=== PATIENT | female | born 1985 | race African-American/Black ===

== ENCOUNTER 2020-03-12 21:52 | Emergency (ER) | payer MEDICARE, MEDICAID, SELFPAY ==
[2020-03-12 22:09] VITALS: BP 131/72; PULSE 78; RESP 14; TEMP 36.8; O2SAT 100
--- NOTE | 2020-03-12 22:43 | ED.SKABFB ---
HPI - Skin/Abscess/Foreign Bdy General Chief complaint: Skin/Abscess/Foreign Body Stated complaint: stung by bee/ swelling in foot Source: patient Mode of arrival: ambulatory Limitations: no limitations History of Present Illness HPI narrative: Left lateral foot stung by several bees yesterday. Today the left foot is swollen, discolored and very painful. She has kept the foot up all day with no improvement. She states this occurs about once a year. She has been treated successfully with prednisone in the past. She denies a rash elsewhere, lip /throat swelling , shortness of breath, nausea, vomiting or lightheadedness Ever since she gave childbirth her feet swell up daily, go down at night. The left foot is much more swollen this evening than the right foot. Related Data Allergies Allergy/AdvReac Type Severity Reaction Status Date / Time No Known Allergies Allergy Verified 03/12/20 22:08 Review of Systems Constitutional: Constitutional: Denies fever(s) Comments: no chills Respiratory: Respiratory: Reports no additional respiratory complaints Gastrointestinal: Gastrointestinal: Reports no additional gastrointestinal complaints Integumentary/Breasts: Skin/Breast: Reports system reviewed and no additional complaints, except as docu FOR[facility]LY [facility] Past Medical History Medical History (Updated 03/13/20 @ 03:49 by Maximino Leslie MD) Cerebral palsy Family History Family History Mother Family history of type 2 diabetes mellitus Social History Social History Smoking status: Current some day smoker Exam Const: General: cooperative and uncomfortable Extrem: Ankle/foot/toe images: 1. dark red & brown, swollen and tender. No foreign body. 2. small, dried ulcer on the tip of her left 5th toe. Other: 1-2 + edema right foot. 2-3+ edema of left foot, especially lateral aspect. There is no streaking of left foot rash towards ankle. Psych: Appearance: grossly normal Course Course Emergency Course: Diagnosis of Large Local Reaction from a bee sting and its treatment explained to the patient. Vital Signs Vital signs: Vital Signs Temperature 36.8 C 03/12/20 22:09 Pulse Rate 78 03/12/20 22:09 Respiratory Rate 14 03/12/20 22:09 Blood Pressure 131/72 03/12/20 22:09 Pulse Oximetry 100 03/12/20 22:09 Temperature 36.8 C 03/12/20 22:09 Pulse Rate 78 03/12/20 22:09 Respiratory Rate 15 03/12/20 23:10 Blood Pressure 131/72 03/12/20 22:09 Pulse Oximetry 100 03/12/20 22:09 MDM - Skin/Abscess/Foreign Bdy MDM Narrative Medical decision making narrative: Patient has a Large Local Reaction from a bee sting which will improve with steroids. Pt. given information about LLR which peaks at 48 hours and may take 5 days before resolution. Discharge Plan Discharge Clinical Impression: Bee sting reaction Qualifiers: Encounter type: initial encounter Injury intent: accidental or unintentional Qualified Code(s): T63.441A - Toxic effect of venom of bees, accidental (unintentional), initial encounter Patient Disposition: Home, Self-Care Condition: Stable Instructions: Insect Bite or Sting (ED) Additional Instructions: Zyrtec 10 mg daily for itching. Return if worsening of symptoms. Follow up with Dr. Briones if not improved in 3 days, not resolved in one week. Prescriptions: New prednisone 10 mg tablet 10 mg PO DAILY Qty: 10 RF: 0 Follow-up/Referrals: Van Briones DO [Primary Care Provider] - Time of Disposition: 23:03 Discharge Date/Time: 03/12/20 23:11
[2020-03-12] MEDS: predniSONE 20 MG TABLET 60 MG PO (22:50)
[2020-03-12 23:10] VITALS: RESP 15
== END 2020-03-12 23:11 | disposition home or self-care (01) ==
PROVIDERS: Emergency Provider Family Medicine; PCP Family Medicine
DX: T63.441A Toxic effect of venom of bees, accidental (unintentional), initial encounter (principal)
CPT/HCPCS: 99283; J7512

== ENCOUNTER 2021-08-09 11:27 | Emergency (ER) | payer OTHER, SELFPAY ==
[2021-08-09 11:40] VITALS: BP 129/52; PULSE 74; RESP 20; TEMP 36.2; O2SAT 100
--- NOTE | 2021-08-09 11:48 | ED.DENTAL ---
HPI - Dental/Oral General Chief complaint: Dental/Oral Stated complaint: toothache Source: patient Mode of arrival: ambulatory Limitations: no limitations History of Present Illness HPI Narrative: this is a 35-year-old female with a chronic dental carries left upper and lower molars has an appointment with dentist in August, but having increased pain with jaw inflammation currently no fever chills no nausea vomiting no shortness of breath. Complaint: tooth pain Onset (ago): week(s) Duration: constant Severity: moderate Severity scale (1-10): 6 Relieving factors: NSAIDs Exacerbating factors: chewing, cold and drinking fluids Related Data Allergies Allergy/AdvReac Type Severity Reaction Status Date / Time No Known Allergies Allergy Verified 08/09/21 11:45 Review of Systems Review of Systems: All systems reviewed & are unremarkable except as noted in HPI and below PMFSH Past Medical History Medical History Cerebral palsy Family History Family History Mother Family history of type 2 diabetes mellitus Social History Social History Smoking status: Current some day smoker Exam Const: General: no acute distress and alert Orientation/consciousness: patient oriented x3 HENMT: Head: normal to inspection Eyes: Conjunctivae: conjunctivae normal Pupils: Equal, round and reactive pupils present Neck: Neck: no lymphadenopathy and no meningeal signs Chest: Chest palpation & inspection: normal inspection of the chest Resp: Effort & Inspection: normal respiratory effort Auscultation: clear to auscultation bilaterally Cardio: Rate: regular rate Rhythm: regular rhythm GI: Auscultation: normal bowel sounds : General: Yes no CVA tenderness Urinary Catheter: Urinary Catheter: patent and draining Back/Spine/Pelvis: Back: no CVA tenderness Skin: General skin exam: normal color Rashes: no rashes Extrem: General: normal to inspection Course Course Emergency Course: Patient received IM ceftriaxone and IM Toradol with some improvement of her pain level. Vital Signs Vital signs: Vital Signs Temperature 36.2 C L 08/09/21 11:40 Pulse Rate 74 08/09/21 11:40 Respiratory Rate 20 08/09/21 11:40 Blood Pressure 129/52 L 08/09/21 11:40 Pulse Oximetry 100 08/09/21 11:40 Temperature 36.2 C L 08/09/21 11:40 Pulse Rate 74 08/09/21 11:40 Respiratory Rate 20 08/09/21 11:40 Blood Pressure 129/52 L 08/09/21 11:40 Pulse Oximetry 100 08/09/21 11:40 Critical Care Time Critical Care Time Critical Care Time: No Discharge Plan Discharge Clinical Impression: Dental caries, Dental abscess Patient Disposition: Home, Self-Care Condition: Stable Instructions: Antibiotic Form, Dental Abscess (ED), Toothache (ED) Additional Instructions: Follow-up with dentist as scheduled, take medicine as prescribed. Prescriptions: New tramadol [Ultram] 50 mg tablet 50 mg PO Q6H PRN (Reason: pain) Qty: 14 RF: 0 amoxicillin 500 mg capsule 500 mg PO TID Qty: 30 RF: 0 Follow-up/Referrals: Van Briones DO [Primary Care Provider] - Stand Alone Forms: Work/School Release IP Time of Disposition: 11:54
[2021-08-09] MEDS: cefTRIAXone 1 GM VIAL IM (11:53)
[2021-08-09] MEDS: KETOROLAC (*BKC) 60 MG/2 ML VIAL IM (11:53)
[2021-08-09] MEDS: LIDOCAINE HCL 1% LOCAL INJ 20 ML VIAL (11:54)
[2021-08-09 12:15] VITALS: BP 118/54; PULSE 70; RESP 20; TEMP 36.7; O2SAT 100
== END 2021-08-09 12:15 | disposition home or self-care (01) ==
PROVIDERS: Emergency Provider Emergency Medicine; PCP Family Medicine
DX: K02.9 Dental caries, unspecified (principal); K04.7 Periapical abscess without sinus
CPT/HCPCS: 96372; 99283; 99284; J0696; J1885

== ENCOUNTER 2021-08-13 20:26 | Emergency (ER) | payer OTHER, SELFPAY ==
[2021-08-13 21:40] VITALS: BP 127/69; PULSE 85; RESP 20; TEMP 36.6; O2SAT 100
--- NOTE | 2021-08-13 23:16 | ED.EXTPRO ---
HPI - Extremity Problem General Source: patient and RN notes reviewed Mode of arrival: ambulatory Limitations: no limitations History of Present Illness Complaint: extremity pain Onset (ago): day(s) (1) Pain Consistency: constant Location: left and lower extremity Severity scale (1-10): 3 Quality: aching and dull Radiation: none Relieving factors: nothing Exacerbating factors: nothing Associated symptoms: denies other symptoms Related Data Allergies Allergy/AdvReac Type Severity Reaction Status Date / Time No Known Allergies Allergy Verified 08/09/21 11:45 Review of Systems Review of Systems: All systems reviewed & are unremarkable except as noted in HPI and below PMFSH Past Medical History Medical History Cerebral palsy Insect bite of foot Family History Family History Mother Family history of type 2 diabetes mellitus Social History Social History Smoking status: Current some day smoker Exam Const: General: no acute distress and alert Orientation/consciousness: patient oriented x3 Limitations: no limitations HENMT: Head: normal to inspection Ears: external ears normal and TM's normal bilaterally General nose exam: Normal external nose present and Normal nares present Eyes: Conjunctivae: conjunctivae normal Pupils: Equal, round and reactive pupils present Neck: Neck: normal visual inspection and no lymphadenopathy Chest: Chest palpation & inspection: normal inspection of the chest Resp: Effort & Inspection: normal respiratory effort Cardio: Rate: regular rate Rhythm: regular rhythm GI: GI Palp: Yes Soft to palpation and No Tenderness to palpation present (GI) Percussion: Yes normal to percussion Auscultation: normal bowel sounds : General: Yes bladder normal to palpation and Yes no CVA tenderness Back/Spine/Pelvis: Back: no CVA tenderness Skin: General skin exam: normal color Rashes: no rashes Neuro: General: patient oriented x3, moves all extremities, no meningeal signs, no focal motor deficits and CN's II-XI intact bilaterally Extrem: Other: left foot redness and swelling. no acute swelling or deformity. Psych: Mental Status: mental status grossly normal Affect: normal affect Thought content: Yes Normal thought content present Course Course Emergency Course: Pt was stable in the ED with less left foot pain. Reevaluation(s) Date: 08/13/21 Time: 21:25 Vital Signs Vital signs: Vital Signs Temperature 36.6 C 08/13/21 21:40 Pulse Rate 85 08/13/21 21:40 Respiratory Rate 20 08/13/21 21:40 Blood Pressure 127/69 08/13/21 21:40 Pulse Oximetry 100 08/13/21 21:40 Temperature 36.6 C 08/13/21 23:36 Pulse Rate 85 08/13/21 23:36 Respiratory Rate 20 08/13/21 23:36 Blood Pressure 126/75 08/13/21 23:36 Pulse Oximetry 100 08/13/21 23:36 MDM - Extremity (Nontraumatic) Differential Diagnosis Differential diagnosis: Likely gout and cellulitis Medical Records Attestation: I reviewed the patient's medical records. Critical Care Time Critical Care Time Critical Care Time: No Total Critical Care Time: 0 Discharge Plan Discharge Clinical Impression: Cellulitis of foot, left, Bee sting reaction Patient Disposition: Home, Self-Care Condition: Stable Instructions: Antibiotic Form Additional Instructions: home. May RTC prn. PMD in 1-2 days. Rx below. Keep the left foot clean and dry. Prescriptions: New methylprednisolone [Methylpred DP] 4 mg tablets,dose pack See Rx Instructions .ROUTE .COMPLEX Qty: 21 RF: 0 diphenhydramine HCl [Benadryl] 25 mg capsule 50 mg PO TID PRN (Reason: allergic reaction) Qty: 20 RF: 0 ibuprofen 800 mg tablet 800 mg PO TID PRN (Reason: pain) Qty: 20 RF: 0 omeprazole magnesium [Prilosec OTC] 20 mg tablet,delayed rele
[2021-08-13] MEDS: cefTRIAXone 1 GM VIAL IM (23:34)
[2021-08-13] MEDS: IBUPROFEN 400 MG TABLET 800 MG PO (23:34)
[2021-08-13] MEDS: methylPREDNISolone SOD SUCC 125 MG VIAL IM (23:34)
[2021-08-13 23:36] VITALS: BP 126/75; PULSE 85; RESP 20; TEMP 36.6; O2SAT 100
== END 2021-08-13 23:44 | disposition home or self-care (01) ==
PROVIDERS: Emergency Provider Emergency Medicine; PCP Family Medicine
DX: L03.116 Cellulitis of left lower limb (principal); T63.441A Toxic effect of venom of bees, accidental (unintentional), initial encounter
CPT/HCPCS: 96372; 99283; 99284; A9270; J0696; J2930

== ENCOUNTER 2022-10-12 20:20 | Emergency (ER) | payer OTHER, SELFPAY ==
--- NOTE | ~2022-10-12 | XR_ITS ---
EXAMINATION: XR chest 1V portable Exam Date/Time: 10/12/2022 20:48 [employer]UCKING CONTRACTOR HISTORY: dyspnea,cough,midsternal cp, body aches x few days hx smoker Comparison: None available. RESULT: Lines, tubes, and devices: None. Lungs and pleura: Clear. Cardiomediastinal silhouette: Unremarkable. Other: No acute osseous or upper abdominal finding. IMPRESSION: No acute cardiopulmonary process. Reviewed, dictated and finalized at location K. KING CONTRACTOR
[2022-10-12 20:25] VITALS: BP 125/75; PULSE 90; RESP 20; TEMP 37; O2SAT 100
--- NOTE | 2022-10-12 20:42 | ED.GENADULT ---
HPI - General Adult General Chief complaint: Upper Respiratory Infection Stated complaint: trouble breathing Time Seen by Provider: 10/12/22 20:32 History of Present Illness HPI narrative: the patient is a 37-year-old woman with a history of asthma and cerebral palsy. She has not used her inhalers in 7 years. She is an active smoker. For the last several days, the patient has had a cough productive of white sputum, rhinorrhea, nasal congestion, sore throat, changes in her voice with voice becoming more worse, shortness of breath, and wheezing. She feels weak and tired and feels miserable. No fevers or chills or diaphoresis. No chest pain or abdominal pain. No nausea vomiting. No other complaints. Related Data Allergies Allergy/AdvReac Type Severity Reaction Status Date / Time No Known Allergies Allergy Verified 08/09/21 11:45 Review of Systems Review of Systems: All systems reviewed & are unremarkable except as noted in HPI and below Constitutional: Constitutional: Reports no additional constitutional complaints, Denies anorexia, Reports body ache(s), Denies chills, Denies excessive sweating, Reports fatigue, Denies fever(s), Denies frequent falls, Denies headache(s), Reports malaise and Denies poor appetite Eyes: Eyes: Reports no additional eye complaints, Denies blurry vision, Denies change in vision, Denies irritation, Denies itchy eyes and Denies photophobia ENT: Reports system reviewed and no additional complaints, except as documented, Reports Normal hearing present, Reports change in voice, Reports dysphagia, Denies vertigo, Denies dizziness, Denies ear discharge, Denies headache(s), Denies hearing loss, Denies hoarseness, Reports nasal congestion, Denies neck pain, Denies sinus pressure, Reports sore throat and Denies throat swelling Cardiovascular: Cardiovascular: Reports no additional cardiovascular complaints, Denies chest pain, Denies syncope, Denies rapid heart rate, Denies irregular heart rhythm, Denies leg edema, Denies dyspnea and Denies slow heart rate Respiratory: Respiratory: Reports no additional respiratory complaints, Reports cough, Reports dyspnea, Denies stridor and Reports wheezing Gastrointestinal: Gastrointestinal: Reports no additional gastrointestinal complaints, Denies abdominal pain, Denies melena, Denies hematochezia, Denies dysphagia, Denies diarrhea, Denies nausea and Denies vomiting Genitourinary: Genitourinary: Denies hematuria, Denies urinary frequency, Denies dysuria, Denies flank pain and Denies urinary urgency Musculoskeletal: Musculoskeletal: Reports no additional musculoskeletal complaints, Denies abnormal gait, Denies back pain, Denies myalgias, Denies arthralgias, Denies joint swelling, Denies limited range of motion, Denies muscle cramps, Denies muscle weakness, Denies neck pain and Denies numbness Integumentary/Breasts: Skin/Breast: Reports system reviewed and no additional complaints, except as docu, Denies breast pain, Denies change in pigmentation, Denies pruritus, Denies erythema and Denies wounds Neurologic: Reports system reviewed and no additional complaints, except as documented, Reports Normal hearing present, Denies Abnormal speech present, Denies abnormal gait, Denies confusion, Denies vertigo, Denies dizziness, Denies syncope, Denies frequent falls, Denies headache(s), Denies focal weakness, Denies numbness and Denies paresthesias Psychiatric: Psychiatric: Reports no additional psychiatric complaints and Denies confusion Endocrine: Endocrine: Reports no additional endocrine complaints, Denies cold intolerance, Denies excessive sweating, Denies fatigue and Denies heat intolerance Hematologic/Lymphatic: Hematologic/Lymphatic: Reports no additional hematologic/lymphatic complaints, Denies easy bleeding and Denies easy bruising Allergic/Immunologic: Allergic/Immunologic: Reports no additional allergic/immunologic complaints, Denies urticaria, Denies itchy eyes, Denies throat swelling
[2022-10-12] MEDS: IPRATROPIUM 0.5 MG/ALBUTEROL SULFATE 2.5 MG AMPUL.NEB 3 ML INHALATION (20:50)
[2022-10-12 20:54] VITALS: PULSE 81; RESP 16
[2022-10-12] MEDS: guaiFENesin/DEXTROMETHORPHAN 5 ML UDC 10 ML PO (21:24)
[2022-10-12 21:25] LABS: Strep Group A RT-PCR NOT DETECTED (Negative)
[2022-10-12] MEDS: BENZONATATE 100 MG CAPSULE PO (21:25)
[2022-10-12] MEDS: AZITHROMYCIN 250 MG TABLET 500 MG PO (21:25)
[2022-10-12 21:31] LABS: Influenza A QL RT-PCR Negative (Negative); Influenza B QL RT-PCR Negative (Negative); RSV RNA, RT-PCR Negative (Negative); SARS-CoV-2 RNA PCR Negative (Negative)
[2022-10-12] MEDS: KETOROLAC 30 MG/ML VIAL (*BKC) IV PUSH (21:38)
[2022-10-12] MEDS: methylPREDNISolone SOD SUCC 125 MG VIAL IV PUSH (21:38)
[2022-10-12] MEDS: MAGNESIUM SULF 2 GM/WATER 50ML 2 GM/50 ML BAG IVPB (21:53)
[2022-10-12 22:17] LABS: Add Urine Microscopic? NO; Appearance Urine Clear (Clear); Bilirubin Urine Negative (Negative); Blood Urine Negative (Negative); Color Urine Light Yellow (Yellow); Glucose Urine UA Negative (Negative); Ketones Urine Negative (Negative); Leukocyte Esterase Ur Negative LEU/UL (Negative); Nitrate Urine Negative (Negative); Protein Urine Negative (Negative)
[2022-10-12 22:20] LABS: Pregnancy On Board Control Positive; Urine Pregnancy Test Negative
[2022-10-12 22:23] VITALS: BP 118/74; PULSE 88; RESP 20; TEMP 36.6; O2SAT 99
== END 2022-10-12 22:29 | disposition home or self-care (01) ==
PROVIDERS: Emergency Provider Emergency Medicine
DX: J45.909 Unspecified asthma, uncomplicated (principal); F17.200 Nicotine dependence, unspecified, uncomplicated; Z20.822 Contact with and (suspected) exposure to COVID-19
CPT/HCPCS: 71045; 81003; 81025; 87637; 87651; 94640; 96365; 96367; 96375; 99284; A9270; J0696; J1885; J2930; J3475

== ENCOUNTER 2023-09-02 11:53 | Outpatient (RCR) | payer MEDICARE, MEDICAID, SELFPAY ==
[2023-09-01 15:32] LABS: Basophils Absolute Auto 0.09 K/mm3 (0.00-0.10); Basophils Percent Auto 1.8 % (0.0-1.0); Eosinophils Absolute Auto 0.14 K/mm3 (0.02-0.50); Eosinophils Percent Auto 2.8 % (1.0-6.0); Hematocrit 25.1 % (35.0-49.0); Immature Granulocyte Absolute 0.02 K/mm3 (0.00-0.00); Immature Granulocyte Percent A 0.4 % (0.0-0.0); Immature Platelet Fraction Pct 7.6 % (1.0-7.0); Lymphocytes Absolute Auto 1.27 K/mm3 (1.10-4.50); Lymphocytes Percent Auto 25.3 % (18.0-42.0); Mean Corpuscular HGB Conc 23.1 g/dL (32.0-36.0); Mean Corpuscular Hemoglobin 14.1 pg (27.0-31.0); Mean Corpuscular Volume 61.2 fL (78.0-102.0); Monocytes Absolute Auto 0.64 K/mm3 (0.10-0.90); Monocytes Percent Auto 12.8 % (2.0-11.0); Neutrophils Absolute Auto 2.9 K/mm3 (1.7-7.2); Neutrophils Percent Auto 56.9 % (50.0-70.0); Nucleated Red Blood Cells Absolute Auto 0.03 K/mm3 (0.00-0.00); Nucleated Red Blood Cells Perc 0.6 % (0-0.0); Platelet Count Result 220 K/mm3 (150-420); Red Cell Distribution Width 19.9 % (11.6-14.4)
[2023-09-01 15:46] LABS: Hemoglobin 5.8 g/dL (12.0-15.0)
[2023-09-01 16:10] LABS: Alanine Aminotransferase 24 U/L (14-59); Albumin Level 4.1 g/dL (3.4-5.0); Alkaline Phosphatase 90 U/L (46-116); Anion Gap 6 mmol/L (8-16); Aspartate Amino Transferase 11 U/L (15-37); Bilirubin,Total 0.6 mg/dL (0.00-1.00); Blood Urea Nitrogen 8 mg/dL (7-18); Calcium 8.7 mg/dL (8.5-10.1); Carbon Dioxide 28 mmol/L (21-32); Chloride 102 mmol/L (98-108); Estimated Glomerular Filt Rate > 60; Free T4 Free Thyroxine 0.79 ng/dL (0.76-1.46); Glucose 90 mg/dL (70-99); Iron 9 ug/dL (50-170); Magnesium 2.1 mg/dL (1.8-2.4); Osmolality Calculated 280 mOsm/kg (285-295); Potassium 3.9 mmol/L (3.5-5.1); Sodium 136 mmol/L (136-145); Thyroid Stimulating Hormone 1.67 uIU/mL (0.36-3.74); Total Protein 7.8 g/dL (6.4-8.2)
[2023-09-01 17:17] VITALS: BP 132/58; PULSE 86; RESP 16; TEMP 36.5; O2SAT 99
[2023-09-01 17:33] VITALS: BP 122/54; PULSE 78; RESP 18; TEMP 36.6; O2SAT 99
[2023-09-01 17:46] VITALS: BMI 25.2
--- NOTE | 2023-09-01 18:00 | PC.NURSE ---
1718 blood started @100ml/hr. 1730 blood titrated up 125ml/hr 1745 blood titrated 150ml/hr 1800 titrated up 175ml/hr
[2023-09-01 18:33] VITALS: BP 118/74; PULSE 74; RESP 16; TEMP 36.6; O2SAT 97
[2023-09-01 19:33] VITALS: BP 112/52; PULSE 91; RESP 17; TEMP 36.4; O2SAT 100
[2023-09-01] MEDS: SODIUM CHLORIDE 0.9% IV 250 ML 100 ML IV CONT (19:36)
[2023-09-01 20:52] LABS: Hematocrit 29.7 % (35.0-49.0); Hemoglobin 7.1 g/dL (12.0-15.0)
[2023-09-02] MEDS: SODIUM CHLORIDE 0.9% IV 250 ML 10 ML IVPB (12:00)
[2023-09-02 12:11] VITALS: BP 118/60; PULSE 92; RESP 16; TEMP 36.6; O2SAT 98
[2023-09-02 12:25] VITALS: BP 118/60; PULSE 88; RESP 16; TEMP 36.6; O2SAT 97
[2023-09-02 13:25] VITALS: BP 120/69; PULSE 88; RESP 14; TEMP 36.6; O2SAT 97
[2023-09-02 14:25] VITALS: BP 110/59; PULSE 88; RESP 14; TEMP 36.7; O2SAT 99
--- NOTE | 2023-09-02 14:46 | PC.NURSE ---
1210 Patient here for 1 Unit of PRBC's r/t hgb 7.1. Patient had 1 unit last evening here for Hgb 5. Consent signed. Explained blood transfusion protocol. All questions answered. 1 Unit of PRBC's started at 100 ml/hr. 1230 No transfusion reaction noted or reported. Up rate to 125 ml/hr. Eating lunch. 1300 Tolerated blood well. Up rate to 150 ml/hr from here on out. 1430 1 unit of PRBC's completed. Normal saline infusion. No concerns voiced.
--- NOTE | 2023-09-02 14:58 | PC.NURSE ---
1455 post h/h drawn from lab.
[2023-09-02 15:02] VITALS: BP 109/67; PULSE 88; RESP 14; TEMP 36.7; O2SAT 98
[2023-09-02 15:12] LABS: Hematocrit 31.1 % (35.0-49.0)
--- NOTE | 2023-09-02 15:17 | PC.NURSE ---
1510 IV dc'd. cath intact. site good. Patient used restroom. Vital signs stable. Safe exit of hospital per self/amb.
[2023-09-03 12:52] LABS: Vitamin D 25 Hydroxy 12 ng/mL (30-100)
== END 2023-11-30 23:59 | disposition home or self-care (01) ==
LOC: CHSTREATRM 11:53
PROVIDERS: PCP Nurse Practitioner Family; Visit Provider Nurse Practitioner Family
DX: D64.9 Anemia, unspecified (principal); R53.83 Other fatigue; Z79.899 Other long term (current) drug therapy
CPT/HCPCS: 36415; 36430; 80053; 82306; 83540; 83735; 84439; 84443; 85014; 85018; 85025; 85055; 86850; 86900; 86901; 86920; J7050; P9016

== ENCOUNTER 2023-09-07 18:35 | Emergency (ER) | payer MEDICARE, OTHER, SELFPAY ==
[2023-09-07 18:35] VITALS: BP 148/72; PULSE 72; RESP 20; TEMP 36.7; O2SAT 100
--- NOTE | 2023-09-07 19:20 | ED.GENADULT ---
HPI - General Adult General Chief complaint: Weakness Stated complaint: weakness Time Seen by Provider: 09/07/23 19:20 History of Present Illness HPI narrative: this is a 38-year-old female presenting ED with chief complaint of fatigue. Patient says that for the last year she has felt physically exhausted. She says she feels like her body is falling apart. She says that it has gotten worse over the last week. She also notes multiple stressors at home but when I asked her about what they were she would not tell me. She then became tearful. When I asked her if she had any history of depression she became upset and said that that is not her problem. Denies SI HI. Patient is post be getting iron infusions for microcytic anemia and has seen her PCP for this the last week. Patient was diagnosed with bronchitis last week. She denies chest pain difficulty breathing, fever chills nausea vomiting diarrhea or urinary symptoms. She is starting her menses now. Related Data Allergies Allergy/AdvReac Type Severity Reaction Status Date / Time No Known Allergies Allergy Verified 09/07/23 18:41 [facility] Past Medical History Medical History Cerebral palsy Insect bite of foot Family History Family History Mother Family history of type 2 diabetes mellitus Social History Social History Smoking status: Current some day smoker Exam Narrative: APPEARANCE: Patient is tearful and confrontational during the interview. Head: atraumatic. EYES: EOMI, NOSE: Atraumatic NECK: Trachea midline RESPIRATORY: No increased rate of breathing CTAB CARDIOVASCULAR: RRR, no peripheral edema ABDOMINAL: Non-distended soft nontender no guarding or rebound MUSCULOSKELETAl: No obvious deformities NEURO: Alert. Moving 4/4 extremities , ambulating without difficulty. No localizing weakness. SKIN:: Warm, dry. Normal color PSYCHIATRIC: Normal affect Course Vital Signs Vital signs: Vital Signs Temperature 98.1 F 09/07/23 18:35 Pulse Rate 72 09/07/23 18:35 Respiratory Rate 20 09/07/23 18:35 Blood Pressure 148/72 H 09/07/23 18:35 Pulse Oximetry 100 09/07/23 18:35 Oxygen Delivery Room Air 09/07/23 18:35 Temperature 98.1 F 09/07/23 18:35 Pulse Rate 72 09/07/23 18:35 Respiratory Rate 20 09/07/23 18:35 Blood Pressure 148/72 H 09/07/23 18:35 Pulse Oximetry 100 09/07/23 18:35 Oxygen Delivery Room Air 09/07/23 18:35 Medical Decision Making MDM Narrative Medical decision making narrative: -Course: 38-year-old female presenting for 1 year of fatigue. Lab work was ordered which showed hemoglobin of 7.9 which is consistent with her outpatient values. Metabolic panel/viral swabs negative. At this time vital signs are stable. She has close outpatient follow-up and should be receiving her iron transfusions this week. Patient will be discharged to follow-up with her primary care physician. During my initial interview and when went to discuss the results with the patient she was confrontational. She was tearful. She says that I did not listen to her and that I did not care. When I asked what else I could do for her she told me she already knew everything that was going on and continued to say I wasn't listening to her. Unfortunately I am not sure what else I can provide her. She was very unhappy with her care. -DDX includes but is not limited to: Anemia, depression, stress reaction, viral syndrome, dehydration -Co-morbidities complicating care: cerebral palsy, anemia -Social determinants of health: disabled due to cerebral palsy, lives with 3 children -External Chart Review: review of primary care notes from last week where the patient was seen for fatigue as well as daily anxiety -Independent interpretation of studies: hemoglobin 7.9, MCV 67.9.
[2023-09-07 19:53] LABS: Anion Gap 3 mmol/L (8-16); Blood Urea Nitrogen 9 mg/dL (7-18); Calcium 8.3 mg/dL (8.5-10.1); Carbon Dioxide 31 mmol/L (21-32); Chloride 103 mmol/L (98-108); Estimated CRCL calculation 121 ml/min; Estimated Glomerular Filt Rate > 60; Glucose 89 mg/dL (70-99); Osmolality Calculated 281 mOsm/kg (285-295); Potassium 3.7 mmol/L (3.5-5.1); Sodium 137 mmol/L (136-145)
[2023-09-07 19:54] LABS: Basophils Absolute Auto 0.08 K/mm3 (0.00-0.10); Basophils Percent Auto 1.2 % (0.0-1.0); Eosinophils Absolute Auto 0.14 K/mm3 (0.02-0.50); Eosinophils Percent Auto 2.1 % (1.0-6.0); Hematocrit 30.9 % (35.0-49.0); Hemoglobin 7.9 g/dL (12.0-15.0); Immature Granulocyte Absolute 0.03 K/mm3 (0.00-0.00); Immature Granulocyte Percent A 0.5 % (0.0-0.0); Immature Platelet Fraction Pct 8.2 % (1.0-7.0); Lymphocytes Absolute Auto 2.01 K/mm3 (1.10-4.50); Lymphocytes Percent Auto 30.3 % (18.0-42.0); Mean Corpuscular HGB Conc 25.6 g/dL (32.0-36.0); Mean Corpuscular Hemoglobin 17.4 pg (27.0-31.0); Mean Corpuscular Volume 67.9 fL (78.0-102.0); Monocytes Absolute Auto 0.69 K/mm3 (0.10-0.90); Monocytes Percent Auto 10.4 % (2.0-11.0); Neutrophils Absolute Auto 3.7 K/mm3 (1.7-7.2); Neutrophils Percent Auto 55.5 % (50.0-70.0); Platelet Count Result 166 K/mm3 (150-420); Red Blood Count 4.55 M/mm3 (4.20-5.40); Red Cell Distribution Width 27.8 % (11.6-14.4); White Blood Count 6.6 K/mm3 (4.8-10.8)
[2023-09-07 20:22] LABS: SARS-CoV-2 RNA PCR Negative (Negative)
[2023-09-07 20:32] LABS: Influenza A QL RT-PCR Negative (Negative); Influenza B QL RT-PCR Negative (Negative); RSV RNA, RT-PCR Negative (Negative)
== END 2023-09-07 21:03 | disposition home or self-care (01) ==
PROVIDERS: Emergency Provider Emergency Medicine; PCP Nurse Practitioner Family
DX: D64.9 Anemia, unspecified (principal); R53.1 Weakness; F17.200 Nicotine dependence, unspecified, uncomplicated; Z20.822 Contact with and (suspected) exposure to COVID-19
CPT/HCPCS: 36415; 80048; 85025; 85055; 87637; 99283

== ENCOUNTER 2023-09-09 10:19 | Outpatient (CLI) | payer MEDICARE, OTHER, SELFPAY ==
[2023-09-09] MEDS: IRON SUCROSE COMPLEX 300 MG in SODIUM CHLORIDE 0.9% IV 250 ML 125 MG IVPB (10:40)
[2023-09-09 10:46] VITALS: BP 136/70; PULSE 80; RESP 14; TEMP 36.6; O2SAT 99
[2023-09-09 10:47] VITALS: BMI 25.0
--- NOTE | 2023-09-09 12:41 | PC.NURSE ---
Patient here for #1 of 3 IV Venofer infusions. Education given. All concerns voiced- answered. IV Venofer administered. SEE MAR. Tolerated well. Gave a list of dates and times for #2 Venofer. She will call me tomorrow which one works best r/t has transportation issues. Safe exit of hospital per self/ambulatory.
== END 2023-09-09 10:20 | disposition home or self-care (01) ==
PROVIDERS: PCP Nurse Practitioner Family; Visit Provider Nurse Practitioner Family
DX: D50.9 Iron deficiency anemia, unspecified (principal)
CPT/HCPCS: 96365; 96366; J1756; J7050

== ENCOUNTER 2023-09-17 10:18 | Outpatient (CLI) | payer MEDICARE, OTHER, SELFPAY ==
[2023-09-17 10:21] VITALS: BMI 25.2
[2023-09-17 10:37] VITALS: BP 125/78; PULSE 80; RESP 14; TEMP 36.6; O2SAT 99
[2023-09-17] MEDS: IRON SUCROSE COMPLEX 300 MG in SODIUM CHLORIDE 0.9% IV 250 ML 125 MG IVPB (10:45)
--- NOTE | 2023-09-17 12:45 | PC.NURSE ---
Patient here for #2 of 3 IV Venofer infusion. Education given. No concerns voiced. IV Venofer administered. SEE MAR. Tolerated well. Safe exit of hospital per self ambulation. Patient will call and tell what day next week works out of the dates given.
== END 2023-09-17 10:19 | disposition home or self-care (01) ==
LOC: CHSTREATRM 10:19
PROVIDERS: PCP Nurse Practitioner Family; Visit Provider Nurse Practitioner Family
DX: D50.9 Iron deficiency anemia, unspecified (principal)
CPT/HCPCS: 96365; 96366; J1756; J7050

== ENCOUNTER 2023-09-23 10:05 | Outpatient (CLI) | payer MEDICARE, OTHER, SELFPAY ==
[2023-09-23 10:13] VITALS: BMI 25.2
[2023-09-23 10:23] VITALS: BP 130/64; PULSE 78; RESP 14; TEMP 36.5; O2SAT 100
[2023-09-23] MEDS: IRON SUCROSE COMPLEX 300 MG in SODIUM CHLORIDE 0.9% IV 250 ML 125 MG IVPB (10:30)
--- NOTE | 2023-09-23 12:39 | PC.NURSE ---
Patient here for #3 of 3 IV Venofer infusions. NO concern voiced. Report mild headache with last infusion, but went away quick. IV Venofer administered. See MAR. Tolerated well. Lab here to draw post Iron and Hgb. Safe exit of hospital per self and ambulatory.
[2023-09-23 12:46] LABS: Hematocrit 35.9 % (35.0-49.0); Hemoglobin 9.3 g/dL (12.0-15.0)
[2023-09-23 13:01] LABS: Iron 480 ug/dL (50-170)
== END 2023-09-23 10:06 | disposition home or self-care (01) ==
PROVIDERS: PCP Nurse Practitioner Family; Visit Provider Nurse Practitioner Family
DX: D50.9 Iron deficiency anemia, unspecified (principal)
CPT/HCPCS: 36415; 83540; 85014; 85018; 96365; 96366; J1756; J7050

== ENCOUNTER 2024-10-27 17:06 | Observation (INO) | payer MEDICARE, MEDICAID, SELFPAY ==
--- OUTSIDE RECORDS SUMMARY | 2024-10-27 17:08 | XMS_ITS | Clinical Summary ---
Author Organization [facility] Address [address] [place] [address] Care Team Providers Care Senior Analyst Developer Name Role Phone Jovany Zhou MD Primary Care Provider [phone] Allergies No known active allergies Medications albuterol HFA (PROVENTIL HFA,VENTOLIN HFA) 90 mcg/actuation inhaler inhale 2 puff by inhalation route every 6 hours as needed 1 Inhaler 3 5 Active ferrous sulfate 325 mg (65 mg of elemental iron) tablet take 1 tablet by oral route every day 30 3 6 Active naproxen sodium 220 mg capsule Take 220 mg by mouth 2 (two) times a day. Active Active Problems Problem Noted Date Diagnosed Date Cerebral palsy 04/10/2013 Overview (12/31/2016): Cerebral palsy Surgical History Surgery Date Site/Laterality Comments OTHER SURGICAL HISTORY Left leg fracture: 8 surgeries/ CP related. OTHER SURGICAL HISTORY 2012 , Twins: x 2 OTHER SURGICAL HISTORY 2014 : OTHER SURGICAL HISTORY Sterilization: L/S bilat. salpingectomy Medical History Medical History Date Comments Hx Other Medical Left leg fractu re Hx Other Medical 02/2013 , Twin s; Comments: Vtx/ vtx delivery of twin females 5# 9 oz and 5# 10 oz, Zayra and Agata Smith. 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 Gender Identity Not on file Sexual Orientation Not on file Obstetrics History Para Term AB IAB SAB Ectopic Multiple Livin g Live Births 2 2 2 1 3 3 Date Outcome GA Total Labor Labor/2nd/3rd Weight Sex Type Anes PTL Radha A1 A5 Name Clin 2012 Term 39w 0d F Vag-S pont N Living Complications:None 2012 Term 39w 0d F Vag-S pont N Living Complications:None 2014 Term 39w 0d M Vag-S pont N Living Complications:None Last Filed Vital Signs Vital Sign Reading Time Taken Comments Blood Pressure 136/80 09/28/2017 1:15 PM NOISE ABATEMENT ENGINEER Pulse - - Temperature - - Respiratory Rate - - Oxygen Saturation - - Inhaled Oxygen Concentration - - Weight 68 kg (150 lb) 09/28/2017 1:15 PM NOISE ABATEMENT ENGINEER Height 160 cm (5' 3 ) 09/28/2017 1:15 PM NOISE ABATEMENT ENGINEER Body Mass Index 26.57 09/28/2017 1:15 PM NOISE ABATEMENT ENGINEER Plan of Treatment Not on file Insurance MEDICARE Care Teams Senior Analyst Developer Relationship Specialty Start Date End Date Jovany Zhou MD [address] [place] [id number] PCP - General Family Medicine 06/17/17
--- OUTSIDE RECORDS SUMMARY | 2024-10-27 17:08 | XMS_ITS | Referral Summary ---
Author Organization [facility] Medical Office Building [address] Address [address] [place] [address] Care Team Providers Care Claims Adjudicator Name Role Phone Jovany Zhou MD Primary Care Provider [phone] Allergies No known active allergies Medications albuterol [...] Cerebral palsy 04/10/2013 Overview (12/31/2016): Cerebral palsy Social History Tobacco Use Types Packs/Day Years Used Date Smoking Tobacco: Former Smokeless Tobacco: Never Comments:Smoking History Pac ks/day: 1 Packs Alcohol Use Standard Drinks/Week Comments Yes 0 (1 standard drink = 0.6 oz pur e alcohol) socially Comments No Sex and Gender Information Value Date Recorded Sex Assigned at Not on file Legal Sex Female 12:27 PM PLANNING SUPERVISOR Gender Identity Not on file Sexual Orientation Not on file Last Filed Vital Signs Vital Sign Reading Time Taken Comments Blood Pressure 136/80 09/28/2017 1:15 PM PLANNING SUPERVISOR Pulse - - Temperature - - Respiratory Rate - - Oxygen Saturation - - Inhaled Oxygen Concentration - - Weight 68 kg (150 lb) 09/28/2017 1:15 PM PLANNING SUPERVISOR Height 160 cm (5' 3 ) 09/28/2017 1:15 PM PLANNING SUPERVISOR Body Mass Index 26.57 09/28/2017 1:15 PM PLANNING SUPERVISOR Plan of Treatment Not on file Insurance MEDICARE Care Teams Claims Adjudicator Relationship Specialty Start Date End Date Jovnay Zhou MD [address] [place] [id number] PCP - General Family Medicine 06/17/17
[2024-10-27 17:33] VITALS: BP 125/69; PULSE 79; RESP 16; TEMP 36.7; O2SAT 100
[2024-10-27 18:34] LABS: Basophils Absolute Auto 0.07 K/mm3 (0.00-0.10); Basophils Percent Auto 1.2 % (0.0-1.0); Eosinophils Absolute Auto 0.12 K/mm3 (0.02-0.50); Hematocrit 28.1 % (35.0-49.0); Immature Granulocyte Absolute 0.03 K/mm3 (0.00-0.00); Immature Granulocyte Percent A 0.5 % (0.0-0.0); Immature Platelet Fraction Pct 5.8 % (1.0-7.0); Lymphocytes Percent Auto 32.9 % (18.0-42.0); Mean Corpuscular HGB Conc 23.5 g/dL (32-36); Mean Corpuscular Hemoglobin 15.2 pg (27.0-31.0); Mean Corpuscular Volume 64.6 fL (78.0-102.0); Monocytes Absolute Auto 0.66 K/mm3 (0.10-0.90); Monocytes Percent Auto 10.9 % (2.0-11.0); Neutrophils Absolute Auto 3.19 K/mm3 (1.70-7.20); Neutrophils Percent Auto 52.5 % (50.0-70.0); Platelet Count Result 292 K/mm3 (150-420); Red Blood Count 4.35 M/mm3 (4.20-5.40); Red Cell Distribution Width 17.9 % (11.6-14.4); White Blood Count 6.1 K/mm3 (4.8-10.8)
[2024-10-27 18:37] LABS: Hemoglobin 6.6 g/dL (12.0-15.0)
--- OUTSIDE RECORDS SUMMARY | 2024-10-27 18:38 | XMS_ITS | Clinical Summary ---
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 SWITCH TECHNICIAN Gender Identity Not on file Sexual Orientation [...] Comments Blood Pressure 136/80 09/28/2017 1:15 PM SWITCH TECHNICIAN Pulse - - Temperature - - Respiratory Rate - - Oxygen Saturation - - Inhaled Oxygen Concentration - - Weight 68 kg (150 lb) 09/28/2017 1:15 PM SWITCH TECHNICIAN Height 160 cm (5' 3 ) 09/28/2017 1:15 PM SWITCH TECHNICIAN Body Mass Index 26.57 09/28/2017 1:15 PM SWITCH TECHNICIAN Plan of Treatment Not on file Insurance MEDICARE Care Teams Radio Dispatcher Relationship Specialty Start Date End Date Jovany Zhou MD [address] [place] [id number] PCP - General Family Medicine 06/17/17
--- OUTSIDE RECORDS SUMMARY | 2024-10-27 18:38 | XMS_ITS | Referral Summary ---
Author Organization [facility] Medical Office Building B Address [address] [place] [address] Care Team Providers Care Wood Drill Operator Name Role Phone Jovany Zhou MD Primary Care Provider [phone] Allergies No known active allergies Medications albuterol [...] on file Legal Sex Female 12:27 PM ELECTRICAL UNIT REBUILDER Gender Identity Not on file Sexual Orientation Not on file Last Filed Vital Signs Vital Sign Reading Time Taken Comments Blood Pressure 136/80 09/28/2017 1:15 PM ELECTRICAL UNIT REBUILDER Pulse - - Temperature - - Respiratory Rate - - Oxygen Saturation - - Inhaled Oxygen Concentration - - Weight 68 kg (150 lb) 09/28/2017 1:15 PM ELECTRICAL UNIT REBUILDER Height 160 cm (5' 3 ) 09/28/2017 1:15 PM ELECTRICAL UNIT REBUILDER Body Mass Index 26.57 09/28/2017 1:15 PM ELECTRICAL UNIT REBUILDER Plan of Treatment Not on file Insurance MEDICARE Care Teams Wood Drill Operator Relationship Specialty Start Date End Date Jovany Zhou MD [address] [place] [id number] PCP - General Family Medicine 06/17/17
[2024-10-27 18:53] LABS: Iron 11 ug/dL (50-170)
--- NOTE | 2024-10-27 19:00 | ED.WEAKNESS ---
HPI - Weakness General Chief complaint: Weakness Stated complaint: wants iron level chacked Source: patient and family Mode of arrival: ambulatory Limitations: no limitations History of Present Illness HPI Narrative: patient is a 39-year-old female with known chronic anemia and gets to feeling weak when her hemoglobin is low. She was not feeling good the last few days and came to the ER [facility] for evaluation. She has never been to a bath tester and it has been followed by her primary doctor over the years. She has gotten transfusions multiple times. She used to get iron transfusion. no origin has ever been found to date. No GI bleeding or urinary bleeding. She does have heavy menstrual cycles. no chest pain or shortness of breath. Complaint: generalized weakness Onset (ago): day(s) (3) Duration: constant Location: generalized Migration: none Severity: moderate Severity scale (1-10): 1 Quality: other ( Generalized aches and pains) Relieving factors: none Exacerbating factors: none Context: other ( long history of chronic anemia with unclear origin) Associated symptoms: denies other symptoms Related Data Allergies Allergy/AdvReac Type Severity Reaction Status Date / Time No Known Allergies Allergy Verified 09/07/23 18:41 Review of Systems Review of Systems: All systems reviewed & are unremarkable except as noted in HPI and below Constitutional: Constitutional: Reports no additional constitutional complaints Eyes: Eyes: Reports no additional eye complaints ENT: Reports system reviewed and no additional complaints, except as documented Cardiovascular: Cardiovascular: Reports no additional cardiovascular complaints Respiratory: Respiratory: Reports no additional respiratory complaints Gastrointestinal: Gastrointestinal: Reports no additional gastrointestinal complaints Genitourinary: Genitourinary: Reports no additional female genitourinary complaints Musculoskeletal: Musculoskeletal: Reports no additional musculoskeletal complaints Integumentary/Breasts: Skin/Breast: Reports system reviewed and no additional complaints, except as docu Neurologic: Reports system reviewed and no additional complaints, except as documented Psychiatric: Psychiatric: Reports no additional psychiatric complaints Endocrine: Endocrine: Reports no additional endocrine complaints Hematologic/Lymphatic: Hematologic/Lymphatic: Reports no additional hematologic/lymphatic complaints Allergic/Immunologic: Allergic/Immunologic: Reports no additional allergic/immunologic complaints [facility] Past Medical History Medical History Insect bite of foot Cerebral palsy Family History Family History Mother Family history of type 2 diabetes mellitus Social History Social History Smoking status: Current some day smoker Exam Const: General: healthy appearing Nutritional Appearance: well nourished Orientation/consciousness: patient oriented x3 HENMT: Head: normal to inspection Ears: external ears normal Face/Nose/Sinus: Normal external nose present Eyes: Conjunctivae: conjunctivae normal Pupils: Equal, round and reactive pupils present EOM: EOMs intact bilaterally Neck: Neck: normal visual inspection Chest: Chest palpation & inspection: normal inspection of the chest Resp: Effort & Inspection: normal respiratory effort and not labored Auscultation: clear to auscultation bilaterally and no crackles Cardio: Rate: regular rate Rhythm: regular rhythm Heart sounds: no murmurs GI: Inspection: non-distended GI Palp: Yes Soft to palpation and No Tenderness to palpation present (GI) Auscultation: normal bowel sounds : General: Yes bladder normal to palpation Back/Spine/Pelvis: Back: no CVA tenderness Skin: General skin exam: No normal color, no jaundice and pallor Rashes: no rashes Wounds: no wounds Neuro: General: patient oriented x3 Cranial nerves: Yes Nystagmus not present Speech: normal speech Extrem: General: normal to inspection Psych: Mental Status: mental status grossly normal Affect: normal affect Attitude: cooperative Course Vital Signs Vital signs: Vital Signs Temperature 36.7 C 10/27/24 17:33 Pulse Rate 79 10/27/24 17:33 Respiratory Rate 16 10/27/24 17:33 Blood Pressure 125/69 10/27/24 17:33 Pulse Oximetry 100 10/27/24 17:33 Oxygen Delivery Room Air 10/27/24 17:33 Temperature 36.7 C 10/27/24 17:33 Pulse Rate 79 10/27/24 17:33 Respiratory Rate 16 10/27/24 17:33 Blood Pressure 125/69 10/27/24 17:33 Pulse Oximetry 100 10/27/24 17:33 Oxygen Delivery Room Air 10/27/24 17:33 MDM - Weakness MDM Narrative Medical decision making narrative: Patient is a 39 year old female with known anemia chronically and she has been weak the past few days. We will check some labs. Patient was noted to be 6.6 hemoglobin and a low iron as well. We will go ahead and admit her for observation to get blood tonight and recheck labs again in the morning to consider more blood if needed. She is not bleeding at this time and she will need an outpatient bath tester evaluation. She will also need GI scopes and further workup in the future. No current concerns for active bleeding. This appears to be more of a blood disorder verses dysfunctional uterine bleed. Lab Data Attestation: I reviewed the patient's lab results. 10/27/24 18:29 10/27/24 18:29 Labs: Lab Results 10/27/24 Range/Units 18:29 WBC 6.1 (4.8-10.8) K/mm3 RBC 4.35 (4.20-5.40) M/mm3 Hgb 6.6 L* (12.0-15.0) g/dL Hct 28.1 L (35.0-49.0) % MCV 64.6 L (78.0-102.0) fL MCH 15.2 L (27.0-31.0) pg MCHC 23.5 L (32-36) g/dL RDW 17.9 H (11.6-14.4) % Plt Count 292 (150-420) K/mm3 MPV Not Reportable Immature Gran % (Auto) 0.5 H (0.0-0.0) % Neut % (Auto) 52.5 (50.0-70.0) % Lymph % (Auto) 32.9 (18.0-42.0) % [place] % (Auto) 10.9 (2.0-11.0) % Eos % (Auto) 2.0 (1.0-6.0) % Baso % (Auto) 1.2 H (0.0-1.0) % Lymph # (Auto) 2.00 (1.10-4.50) K/mm3 [place] # (Auto) 0.66 (0.10-0.90) K/mm3 Eos # (Auto) 0.12 (0.02-0.50) K/mm3 Baso # (Auto) 0.07 (0.00-0.10) K/mm3 Abs Immat Gran (auto) 0.03 H (0.00-0.00) K/mm3 Absolute Neuts (auto) 3.19 (1.70-7.20) K/mm3 Absolute Nucleated RBC 0.00 (0.00-0.00) K/mm3 Nucleated RBC % 0.0 (0-0.0) % % Immature Plt Fraction 5.8 (1.0-7.0) % Sodium 139 (136-145) mmol/L Potassium 3.8 (3.5-5.1) mmol/L Chloride 105 (98-108) mmol/L Carbon Dioxide 27 (21-32) mmol/L Anion Gap 7 (4-12) mmol/L BUN 8 (7-18) mg/dL Creatinine 0.50 L (0.55-1.02) mg/dL Estim Creat Clear Calc 119 ml/min Estimated GFR > 60 (59 - ) Glucose 92 (70-99) mg/dL Calculated Osmolality 286 (285-295) mOsm/kg Calcium 8.5 (8.5-10.1) mg/dL Iron 11 L (50-170) ug/dL Total Bilirubin 0.3 (0.00-1.00) mg/dL AST < 10 L (15-37) U/L ALT 7 L (14-59) U/L Alkaline Phosphatase 92 (46-116) U/L Total Protein 6.6 (6.4-8.2) g/dL Albumin 3.7 (3.4-5.0) g/dL Blood Type B Positive Antibody Screen Negative Crossmatch See Detail Discharge Plan Discharge Clinical Impression: Anemia Qualifiers: Anemia type: other cause Other causes of anemia: other cause, not classified Qualified Code(s): D64.89 - Other specified anemias Patient Disposition: Acute [facility] [place] Condition: Stable Time of Disposition: 22:34
--- NOTE | 2024-10-27 19:09 | PC.NURSE ---
report to leonel valdes
--- NOTE | 2024-10-27 20:06 | PC.NURSE ---
Pt ambulated to bathroom for urine specimen
[2024-10-27 20:47] LABS: Alanine Aminotransferase 7 U/L (14-59); Albumin Level 3.7 g/dL (3.4-5.0); Alkaline Phosphatase 92 U/L (46-116); Anion Gap 7 mmol/L (4-12); Aspartate Amino Transferase < 10 U/L (15-37); Bilirubin,Total 0.3 mg/dL (0.00-1.00); Blood Urea Nitrogen 8 mg/dL (7-18); Calcium 8.5 mg/dL (8.5-10.1); Carbon Dioxide 27 mmol/L (21-32); Chloride 105 mmol/L (98-108); Estimated CRCL calculation 119 ml/min; Estimated Glomerular Filt Rate > 60; Glucose 92 mg/dL (70-99); Osmolality Calculated 286 mOsm/kg (285-295); Potassium 3.8 mmol/L (3.5-5.1); Sodium 139 mmol/L (136-145); Total Protein 6.6 g/dL (6.4-8.2)
[2024-10-27] MEDS: ACETAMINOPHEN 500 MG TABLET 1000 MG PO (21:50)
[2024-10-27] MEDS: MAG HYDROX/AL HYDROX/SIMETH 30 ML UDC PO (21:51)
[2024-10-27 22:50] VITALS: BP 127/72; PULSE 75; RESP 20; TEMP 36.7; O2SAT 100
[2024-10-27] MEDS: SODIUM CHLORIDE 0.9% IV 250 ML 30 ML IV CONT (22:50)
[2024-10-27 23:05] VITALS: BP 116/70; PULSE 68; RESP 18; TEMP 36.7; O2SAT 100
[2024-10-27 23:20] VITALS: BP 113/61; PULSE 73; RESP 18; TEMP 36.7; O2SAT 100
[2024-10-27 23:35] VITALS: BP 114/71; PULSE 67; RESP 18; TEMP 36.8; O2SAT 99
[2024-10-27 23:50] VITALS: BP 131/59; PULSE 77; RESP 16; TEMP 36.8; O2SAT 100
[2024-10-28] VITALS (11 sets, daily range): BP systolic 100–122; BP diastolic 48–72; PULSE 66–78; RESP 16–20; TEMP 36.3–36.8; O2SAT 95–100
--- NOTE | 2024-10-28 01:00 | ADMGEN ---
This patient, Maricarmen Smith, was admitted to 2nd Floor Room 210-1 as 23 hr obs. Patient/family oriented to hospital policies and general routines including ID bracelet, bed and alarms, visiting hours, pain management, procedures, bathroom and other care routines, personal items, smoking policy, room service/diet, and visiting hours. Information on how to activate the Rapid Response Team has been discussed. Patient/Family are encouraged to report perceived risks to care and to ask questions if they do not understand what they are told or what they should do. Pt is resting comfortably w/ call hi at side. No other c/o at this time.
[2024-10-28 05:31] LABS: Basophils Percent Auto 1.5 % (0.0-1.0); Eosinophils Absolute Auto 0.22 K/mm3 (0.02-0.50); Eosinophils Percent Auto 3.2 % (1.0-6.0); Hematocrit 28.4 % (35.0-49.0); Hemoglobin 7.2 g/dL (12.0-15.0); Immature Granulocyte Absolute 0.02 K/mm3 (0.00-0.00); Immature Granulocyte Percent A 0.3 % (0.0-0.0); Immature Platelet Fraction Pct 6.1 % (1.0-7.0); Lymphocytes Absolute Auto 2.67 K/mm3 (1.10-4.50); Lymphocytes Percent Auto 38.8 % (18.0-42.0); Mean Corpuscular HGB Conc 25.4 g/dL (32-36); Mean Corpuscular Hemoglobin 16.8 pg (27.0-31.0); Mean Corpuscular Volume 66.4 fL (78.0-102.0); Monocytes Absolute Auto 0.78 K/mm3 (0.10-0.90); Monocytes Percent Auto 11.3 % (2.0-11.0); Neutrophils Percent Auto 44.9 % (50.0-70.0); Platelet Count Result 282 K/mm3 (150-420); Red Blood Count 4.28 M/mm3 (4.20-5.40); Red Cell Distribution Width 19.5 % (11.6-14.4); White Blood Count 6.9 K/mm3 (4.8-10.8)
[2024-10-28] MEDS: FERROUS SULFATE 325 MG TABLET DR PO (09:38)
[2024-10-28] MEDS: PANTOPRAZOLE 40 MG TABLET PO (09:38)
--- NOTE | 2024-10-28 11:32 | P.SS_ITS ---
Same Day Admit/Disch: HPI History of Present Illness Chief complaint: wants iron level chacked Narrative: Maricarmen Smith is a 39 year old female Who had presented to the emergency department with complaints of generalized weakness and concern her iron levels were low. patient states she has a history iron deficiency anemia at which time she was previously receiving iron infusions back in 2022. patient states she could tell her iron was low again due to weakness, shortness for breath and dizziness. patient states she did not use to follow with an gyn due to her moderate to severe heavy menstrual cycles which was likely cause of her iron deficiency anemia, however since her last iron patient's in 2022 she has not had a follow-up with her primary care or OBGYN. Patient reported she stopped taking her iron supplements because they make her stomach upset. in the emergency department patient was found to have hemoglobin of 6.6 no signs or evidence of any active GIB denied any bloody emesis or blood in stool but did just recently have her last menstrual cycle at which time she reported heavy bleeding with clots. iron was also completed in the emergency department showing iron at 11. labs indicative microcytic anemia appear secondary to iron deficiency. patient was admitted to the medical unit to receive PRBCs and iron transfusions. [facility] Past Medical History Medical History Anemia Iron deficiency anemia Insect bite of foot Cerebral palsy Family History Family History Mother Family history of type 2 diabetes mellitus Social History Social History Smoking packs per day: 1 Smoking cigarettes per day: 20.0 Years smoked: 25 Smoking pack-years: 25.00 Smoking status: Current every day smoker Tobacco type: cigarettes Alcohol intake: never Substance use: never Substance use type: does not use Do You Feel Safe in your Home?: Yes Lack of Transportation: YES Lack of Food: Never True Current Housing: I Have Housing Concerned About Future Housing: No Difficulty Paying Gas/Electric Bills: No Difficulty Paying for Meds: No Currently Unemployed: No Education: Associate Degree Difficulty w/ Childcare or Family Care: No Spiritual care concerns: No Same Day Admit/Disch: Med Pre-admit Medications Home Medications ?Medication ?Instructions ?Recorded ?Confirmed ?Type sumatriptan succinate 25 mg tablet See Rx Instructions .Route 10/26/23 10/28/24 Rx .COMPLEX #10 tabs cholecalciferol (vitamin D3) 25 25 mcg PO DAILY 10/28/24 10/28/24 History mcg (1,000 unit) capsule ferrous sulfate 325 mg (65 mg 325 mg PO BIDWM #60 tabs 10/28/24 Rx iron) tablet (Iron (ferrous sulfate)) ondansetron 4 mg disintegrating 4 mg PO .q12 PRN nausea and 10/28/24 Rx tablet vomiting #60 tabs pantoprazole 40 mg tablet,delayed 40 mg PO PRN #30 tabs 10/28/24 Rx release Review of Systems Review of Systems All systems reviewed & are unremarkable except as noted in HPI and below Exam Narrative: * GENERAL: Alert and oriented x 3 pleasant female. No acute distress. * EYES: PERRLA. * HEENT: Moist mucous membranes. * LUNGS: Clear to auscultation bilaterally. No accessory muscle use. * CARDIOVASCULAR: Regular rate and rhythm. * ABDOMEN: Soft, non tenderness and non-distended. No palpable masses. * EXTREMITIES: No edema. Non-tender * SKIN: No rashes or lesions. Skin warm, dry. * NEUROLOGIC: No focal neurological deficits. CN II-XII grossly intact * PSYCHIATRIC: Appropriate mood and affect. DS: Data Data Completed and Pending Labs on day of discharge: Labs from last 24 hours 10/28/24 10/27/24 05:23 18:29 WBC 6.9 6.1 RBC 4.28 4.35 Hgb 7.2 L 6.6 L* Hct 28.4 L 28.1 L MCV 66.4 L 64.6 L MCH 16.8 L 15.2 L MCHC 25.4 L 23.5 L RDW 19.5 H 17.9 H Plt Count 282 292 MPV Not Reportable Not Reportable Immature Gran % (Auto) 0.3 H 0.5 H Neut % (Auto) 44.9 L 52.5 Lymph % (Auto) 38.8 32.9 [place] % (Auto) 11.3 H 10.9 Eos % (Auto) 3.2 2.0 Baso % (Auto) 1.5 H 1.2 H Lymph # (Auto) 2.67 2.00 [place] # (Auto) 0.78 0.66 Eos # (Auto) 0.22 0.12 Baso # (Auto) 0.10 0.07 Abs Immat Gran (auto) 0.02 H 0.03 H Absolute Neuts (auto) 3.10 3.19 Absolute Nucleated RBC 0.00 0.00 Nucleated RBC % 0.0 0.0 % Immature Plt Fraction 6.1 5.8 Sodium 139 Potassium 3.8 Chloride 105 Carbon Dioxide 27 Anion Gap 7 BUN 8 Creatinine 0.50 L Estim Creat Clear Calc 119 Estimated GFR > 60 Glucose 92 Calculated Osmolality 286 Calcium 8.5 Iron 11 L Total Bilirubin 0.3 AST < 10 L ALT 7 L Alkaline Phosphatase 92 Total Protein 6.6 Albumin 3.7 Blood Type B Positive Antibody Screen Negative Crossmatch See Detail DS: Summary Hospital Course Reason for hospitalization: symptomatic Anemia Hospital Course: Maricarmen Smith is a 39 year old female Who had presented to the emergency department with complaints of generalized weakness and concern her iron levels were low. patient states she has a history iron deficiency anemia at which time she was previously receiving iron infusions back in 2022. patient states she could tell her iron was low again due to weakness, shortness for breath and dizziness. patient states she did not use to follow with an gyn due to her moderate to severe heavy menstrual cycles which was likely cause of her iron deficiency anemia, however since her last iron patient's in 2022 she has not had a follow-up with her primary care or OBGYN. Patient reported she stopped taking her iron supplements because they make her stomach upset. in the emergency department patient was found to have hemoglobin of 6.6 no signs or evidence of any active GIB denied any bloody emesis or blood in stool but did just recently have her last menstrual cycle at which time she reported heavy bleeding with clots. iron was also completed in the emergency department showing iron at 11. labs indicative microcytic anemia appear secondary to iron deficiency. patient was admitted to the medical unit to receive PRBCs and iron transfusions. Patient received 2 units PRBCs and 1 iron transfusion. patient reports she has not been taking her iron supplement at home eg gated on the need for medication compliance. patient tolerated transfusion denied any chest pain, shortness a breath, dizziness or visual changes reported improvement to weakness overall follow-up H&H 8.5 and 32.3. patient was then discharged home on iron supplement advised to follow-up a division field inspector as well as OBGYN for further evaluation and treatment patient is aware she likely needs to continue her iron transfusions outpatient. patient acknowledged and agreed discharge plan patient discharged home. Status at Discharge Functional status at discharge: independent ambulation Overall status at discharge: patient is back to baseline Time Spent with Patient Time attestation: Total time spent providing and/or coordinating discharge services: DS: Admitting Diagnosis Discharge Date 10/28/2024 Admitting Diagnosis symptomatic anemia DS: Discharge Diagnosis Discharge Diagnosis (1) Cerebral palsy: Code(s): G80.9 - Cerebral palsy, unspecified Status: Acute (2) Migraine: Code(s): G43.909 - Migraine, unspecified, not intractable, without status migrainosus Status: Acute (3) Iron deficiency anemia: Code(s): D50.9 - Iron deficiency anemia, unspecified Status: Acute Assessment and Plan: * resume oral ferrous sulfate * added PPI * Zofran when nauseated * recommend food prior to taking supplement * will need follow-up with resistance brazer and division field inspector * prescribed stool softener Plan Disposition: Discharge to home Discharge Plan Discharge Attending physician on discharge: Miles Ward Discharging Clinician: Kalli Worthy Anticipated Discharge Date/Time: 10/28/24 15:00 Patient Disposition: Home, Self-Care Activity: may shower, unlimited and as tolerated Diet: regular and other - see discharge instructions Discharge Instructions: * encouraged to continue with your iron supplements prescribed * provided with prescription Zofran and stool softener * eat 30 minutes prior to ingestion of iron supplement * You will need follow-up with a division field inspector and resistance brazer outpatient for further evaluation and treatment * Encourage iron enriched diet. How can you care for yourself at home? ? Keep track of any new symptoms or changes in your symptoms. ? Rest until you feel better. ? Be safe with medicines. Take your medicines exactly as prescribed. Call your doctor if you think you are having a problem with your medicine. ? Do not drive after taking a prescription pain medicine. ? Ensure to follow-up with primary care physician as indicated and provide updated medication list provided to you at discharge. When should you call for help? Call 911 anytime you think you may need emergency care. For example, call if: ? You passed out (lost consciousness). Call your doctor now or seek immediate medical care if: ? You have new symptoms like fever, difficulty breathing, Chest pain, vomiting, or rash. ? You have new or different pain. ? You are confused and are having trouble thinking clearly. ? Your symptoms are getting worse. Watch closely for changes in your health, and be sure to contact your doctor if: ? You do not get better as expected. Patient Instructions: Antibiotic Form, Iron Rich Diet (DC), Iron Deficiency Ane ino (GEN) Patient Language: Italian Stand Alone Forms: General Discharge Information Follow-up/Referrals: Nando Siegel APRN [Primary Care Provider] - 2 weeks Discharge Medications: New ondansetron 4 mg tablet,disintegrating 4 mg PO .q12 PRN (Reason: nausea and vomiting) Qty: 60 0RF sennosides-docusate sodium [Senna with Docusate Sodium] 8.6-50 mg tablet 1 tab-cap PO HS Qty: 30 0RF Continued cholecalciferol (vitamin D3) 25 mcg (1,000 unit) capsule 25 mcg PO DAILY sumatriptan succinate 25 mg tablet See Rx Instructions .ROUTE .COMPLEX Qty: 10 0RF Dose Instruction: 1 TAB AT ONSET OF HEADACHE MAY REPEAT ONCE AFTER AT LEAST 2 HOUR IF NO RELIEF-MAX PER 24 HOUR: 4 TAB Rx Instructions: 1 TAB AT ONSET OF HEADACHE MAY REPEAT ONCE AFTER AT LEAST 2 HOUR IF NO RELIEF-MAX PER 24 HOUR: 4 TAB Changed pantoprazole 40 mg tablet,delayed release (DR/EC) 40 mg PO PRN Qty: 30 0RF Patient Comments: picked up at pharm ferrous sulfate [Iron (ferrous sulfate)] 325 mg (65 mg iron) tablet 325 mg PO BIDWM Qty: 60 0RF Date of admission: 10/27/24 22:19 Primary Care Provider: Nando Siegel Admitting Provider: Miles Ward Attending physician on admission: Deacon,Kalli M.J. Condition: Stable Quality -Patient's previous records reviewed on admission -ER notes reviewed in detail on admission -discussed all findings and current treatment plan with patient/Family/POA -Consultations reviewed for recommendations -Patient's disposition for safe discharge discussed with director of casework department Dictation performed by [employer] direct speech recognition software, therefore field crop farm worker variants and typographical errors may occur. Hospitalist MIPS Advance Care Plan I have confirmed that the patient's Advanced Care Plan is present, code status is documented, or surrogate decision maker is listed in patient medical record.: Yes Medication Reconciliation I have utilized all available resources to obtain, update and review the patients current medications (includes all prescriptions, OTC, herbals, cannabis, and nutritional supplements).: Yes The patient is not eligible for med reconciliation; the patient is in a emergent medical situation where delaying treatment would jeopardize the patients health.: No Heart Failure (Exclusion) Patient has history of Heart Transplant or Left Ventricular Assistive Device?: No IF YES, STOP HERE Heart Failure (Qualifier) Patient has current or prior documentation of LVEF less than or equal to 40%, or mod/servere depressed LVSF?: No IF NO, STOP HERE
[2024-10-28] MEDS: IRON SUCROSE COMPLEX 200 MG, IRON SUCROSE COMPLEX 100 MG in SODIUM CHLORIDE 0.9% IV 250 ML 176.67 MG IVPB (13:28)
[2024-10-28] MEDS: SODIUM CHLORIDE 0.9% IV 250 ML 30 ML IV CONT (13:32)
[2024-10-28 15:18] LABS: Hematocrit 32.3 % (35.0-49.0); Hemoglobin 8.5 g/dL (12.0-15.0); Mean Corpuscular HGB Conc 26.3 g/dL (32-36); Mean Corpuscular Hemoglobin 17.8 pg (27.0-31.0); Mean Corpuscular Volume 67.6 fL (78.0-102.0); Platelet Count Result 294 K/mm3 (150-420); Red Blood Count 4.78 M/mm3 (4.20-5.40); Red Cell Distribution Width 20.9 % (11.6-14.4); White Blood Count 6.7 K/mm3 (4.8-10.8)
--- NOTE | 2024-10-28 17:22 | PC.NURSE ---
1600 dc went over. patient vocalizes an understanding. labs went over. waiting for ride from brother. 1650 brother here and patient care turned over to him. c/o to voice understanding.
== END 2024-10-28 16:50 | disposition home or self-care (01) ==
LOC: CHSED 18:36 → CHS2ND 22:26
PROVIDERS: Admitting Provider Internal Medicine; Emergency Provider Emergency Medicine; PCP Nurse Practitioner Family; Visit Provider Nurse Practitioner Family
DX: D50.9 Iron deficiency anemia, unspecified (principal); G80.9 Cerebral palsy, unspecified; G43.909 Migraine, unspecified, not intractable, without status migrainosus; N92.0 Excessive and frequent menstruation with regular cycle; F17.210 Nicotine dependence, cigarettes, uncomplicated
CPT/HCPCS: 36415; 36430; 80053; 83540; 85025; 85027; 85055; 86850; 86900; 86901; 86920; 96361; 96374; 96375; 99285; A9270; G0378; J1756; J7050; P9016

== ENCOUNTER 2024-11-06 15:22 | Outpatient (CLI) | payer MEDICARE, MEDICAID, SELFPAY ==
--- OUTSIDE RECORDS SUMMARY | 2024-11-06 15:30 | XMS_ITS | Referral Summary ---
Author Organization [facility] Medical Office Building B Address [address] [place] [address] Care Team Providers Care Fitness Leader Name Role Phone Jovany Zhou MD Primary Care Provider [phone] Allergies No known active allergies Medications albuterol [...] on file Legal Sex Female 12:27 PM CAMPUS MANAGER Gender Identity Not on file Sexual Orientation Not on file Last Filed Vital Signs Vital Sign Reading Time Taken Comments Blood Pressure 136/80 09/28/2017 1:15 PM CAMPUS MANAGER Pulse - - Temperature - - Respiratory Rate - - Oxygen Saturation - - Inhaled Oxygen Concentration - - Weight 68 kg (150 lb) 09/28/2017 1:15 PM CAMPUS MANAGER Height 160 cm (5' 3 ) 09/28/2017 1:15 PM CAMPUS MANAGER Body Mass Index 26.57 09/28/2017 1:15 PM CAMPUS MANAGER Plan of Treatment Not on file Insurance MEDICARE Care Teams Fitness Leader Relationship Specialty Start Date End Date Jovany Zhou MD [address] [place] [address] PCP - General Family Medicine 06/17/17
--- OUTSIDE RECORDS SUMMARY | 2024-11-06 15:30 | XMS_ITS | Clinical Summary ---
Author Organization [facility] Medical Office Building B Address [address] [place] [address] Care Team Providers Care Mig Tig Welder Name Role Phone Jovany Zhou MD Primary Care Provider [phone] Allergies No known active allergies Medications albuterol [...] Hx Other Medical manag ement; Outcome: Live Hx Other Medical ; Outc ome: Live infant Hx Other Medical Sterilization Social History Tobacco Use Types Packs/Day Years Used Date Smoking Tobacco: Former Smokeless Tobacco: Never Comments:Smoking History Pac ks/day: 1 Packs Alcohol Use Standard Drinks/Week Comments Yes 0 (1 standard drink = 0.6 oz pur e alcohol) socially Comments No Sex and Gender Information Value Date Recorded Sex Assigned at Not on file Legal Sex Female 12:27 PM SOCK EXAMINER Gender Identity Not on file Sexual Orientation [...] Comments Blood Pressure 136/80 09/28/2017 1:15 PM SOCK EXAMINER Pulse - - Temperature - - Respiratory Rate - - Oxygen Saturation - - Inhaled Oxygen Concentration - - Weight 68 kg (150 lb) 09/28/2017 1:15 PM SOCK EXAMINER Height 160 cm (5' 3 ) 09/28/2017 1:15 PM SOCK EXAMINER Body Mass Index 26.57 09/28/2017 1:15 PM SOCK EXAMINER Plan of Treatment Not on file Insurance MEDICARE Care Teams Mig Tig Welder Relationship Specialty Start Date End Date Jovany Zhou MD [address] [place] [address] PCP - General Family Medicine 06/17/17
[2024-11-06 15:48] LABS: Basophils Absolute Auto 0.05 K/mm3 (0.00-0.10); Basophils Percent Auto 0.8 % (0.0-1.0); Eosinophils Absolute Auto 0.18 K/mm3 (0.02-0.50); Eosinophils Percent Auto 2.9 % (1.0-6.0); Hematocrit 40.4 % (35.0-49.0); Hemoglobin 10.6 g/dL (12.0-15.0); Immature Granulocyte Absolute 0.02 K/mm3 (0.00-0.00); Immature Granulocyte Percent A 0.3 % (0.0-0.0); Immature Platelet Fraction Pct 7.5 % (1.0-7.0); Lymphocytes Absolute Auto 1.48 K/mm3 (1.10-4.50); Lymphocytes Percent Auto 23.5 % (18.0-42.0); Mean Corpuscular HGB Conc 26.2 g/dL (32-36); Mean Corpuscular Hemoglobin 19.2 pg (27.0-31.0); Mean Corpuscular Volume 73.1 fL (78.0-102.0); Monocytes Absolute Auto 0.46 K/mm3 (0.10-0.90); Monocytes Percent Auto 7.3 % (2.0-11.0); Neutrophils Percent Auto 65.2 % (50.0-70.0); Platelet Count Result 192 K/mm3 (150-420); Red Blood Count 5.53 M/mm3 (4.20-5.40); Red Cell Distribution Width 28.4 % (11.6-14.4); White Blood Count 6.3 K/mm3 (4.8-10.8)
[2024-11-06 16:51] LABS: Iron 48 ug/dL (50-170); Percent Iron Saturation 13 % (12-57); Vitamin B12 312 pg/mL (193-986)
[2024-11-08 07:03] LABS: Vitamin D 25 Hydroxy 24 ng/mL (30-100)
== END 2024-11-06 15:23 | disposition home or self-care (01) ==
LOC: CHSLAB 15:24
PROVIDERS: PCP Nurse Practitioner Family; Visit Provider Nurse Practitioner Family
DX: D50.9 Iron deficiency anemia, unspecified (principal); E53.8 Deficiency of other specified B group vitamins; Z79.899 Other long term (current) drug therapy
CPT/HCPCS: 36415; 82306; 82607; 83540; 83550; 85025; 85055

== ENCOUNTER 2024-12-14 14:14 | Outpatient (CLI) | payer MEDICARE, MEDICAID, SELFPAY ==
--- OUTSIDE RECORDS SUMMARY | 2024-12-14 14:42 | XMS_ITS | Clinical Summary ---
Author Organization [facility] Eufemia huitron Alyssa Address [address] [place] [address] Care Team Providers Care Car Cleaner Name Role Phone Unavailable Primary Care Provider Unavailabl e Social History Tobacco Use Types Packs/Day Years Used Date Smoking Tobacco: Never Assessed Comments Unknown Sex and Gender Information Value Date Recorded Sex Assigned at Not on file Legal Sex Female 3:35 PM BILLET HEATER OPERATOR Gender Identity Not on file Sexual Orientation Not on file Plan of Treatment Upcoming Encounters Date Type Department Care Team (Late st Contact Info) Description 01/17/2025 11:30 AM CDT Office Visit [facility] Oncology and Hematology - [place] [address] [place] [address] Angela Lucia MD [address] [place] [address] Health Maintenance Due Date Last Done Comments DTAP/TDAP/TD VACCINES (1 - Tdap) 2002 HEPATITIS B VACCINES (1 of 3 - 19+ 3-dose series) 2002 PAP SMEAR 2004 CERVICAL CANCER SCREENING 2013 HPV/Cotest 2013 PAP SMEAR 2013 BREAST CANCER SCREENING 2023 INFLUENZA VACCINE (#1) 2024 HPV VACCINES Aged Out No longer eligi ble based on patient's age to complete this topic Insurance [facility] MCR
--- OUTSIDE RECORDS SUMMARY | 2024-12-14 14:42 | XMS_ITS | Referral Summary ---
Author Organization [facility] Medical Office Building B Address [address] [place] [address] Care Team Providers Care Produce Laborer Name Role Phone Jovany Zhou MD Primary Care Provider Allergies No known active allergies Medications albuterol [...] on file Legal Sex Female 12:27 PM MEDICAL BILLER/CODER Gender Identity Not on file Sexual Orientation Not on file Last Filed Vital Signs Vital Sign Reading Time Taken Comments Blood Pressure 136/80 09/28/2017 1:15 PM MEDICAL BILLER/CODER Pulse - - Temperature - - Respiratory Rate - - Oxygen Saturation - - Inhaled Oxygen Concentration - - Weight 68 kg (150 lb) 09/28/2017 1:15 PM MEDICAL BILLER/CODER Height 160 cm (5' 3 ) 09/28/2017 1:15 PM MEDICAL BILLER/CODER Body Mass Index 26.57 09/28/2017 1:15 PM MEDICAL BILLER/CODER Plan of Treatment Not on file Insurance MEDICARE Care Teams Produce Laborer Relationship Specialty Start Date End Date Jovany Zhou MD [address] [place] [address] PCP - General Family Medicine 06/17/17
--- OUTSIDE RECORDS SUMMARY | 2024-12-14 14:42 | XMS_ITS | Clinical Summary ---
Author Organization [facility] Medical Office Building B Address [address] [place] [address] Care Team Providers Care Cotton Ball Bagger Name Role Phone Jovany Zhou MD Primary [...] on file Legal Sex Female 12:27 PM SPECIAL NEEDS BUS DRIVER Gender Identity Not on file Sexual Orientation [...] Comments Blood Pressure 136/80 09/28/2017 1:15 PM SPECIAL NEEDS BUS DRIVER Pulse - - Temperature - - Respiratory Rate - - Oxygen Saturation - - Inhaled Oxygen Concentration - - Weight 68 kg (150 lb) 09/28/2017 1:15 PM SPECIAL NEEDS BUS DRIVER Height 160 cm (5' 3 ) 09/28/2017 1:15 PM SPECIAL NEEDS BUS DRIVER Body Mass Index 26.57 09/28/2017 1:15 PM SPECIAL NEEDS BUS DRIVER Plan of Treatment Not on file Insurance MEDICARE Care Teams Cotton Ball Bagger Relationship Specialty Start Date End Date Jovany Zhou MD [address] [place] [address] PCP - General Family Medicine 06/17/17
[2024-12-14 14:50] LABS: Hematocrit 40.7 % (37.0-47.0); Hemoglobin 12.1 g/dL (12.0-15.0); Immature Platelet Fraction Pct 9.6 % (0.9-11.2); Mean Corpuscular HGB Conc 29.7 g/dl (32-36); Mean Corpuscular Hemoglobin 25.1 pg (26-34); Mean Corpuscular Volume 84.3 fl (80-100); Mean Platelet Volume 11.3 fl (7.4-10.4); Platelet Count Result 253 k/mm3 (150-375); Red Blood Count 4.83 M/mm3 (4.2-5.4); Red Cell Distribution Width 21.3 % (11.5-14.5); White Blood Count 8.9 K/mm3 (4.5-10.0)
[2024-12-14 15:06] LABS: Prothrombin Time 13.6 Seconds (11.1-14.7)
[2024-12-14 15:07] LABS: Partial Thromboplastin Time 28.8 Seconds (22.3-36.8)
[2024-12-14 15:52] LABS: Iron 233 ug/dL (37-170)
[2024-12-14 16:23] LABS: Thyroid Stimulating Hormone Reflex 0.908 uIU/mL (0.465-4.68)
[2024-12-15 18:13] LABS: Hematocrit 41.4 % (35.0-45.0); Hemoglobin 12.3 g/dL (11.7-15.5); MCH 25.2 pg (27.0-33.0); MCV 84.8 fL (80.0-100.0); RDW 20.2 % (11.0-15.0); Red Blood Cell Count 4.88 Million/uL (3.80-5.10)
[2024-12-15 20:07] LABS: FSH 4.3 mIU/mL; LH 5.6 mIU/mL
== END 2024-12-14 14:15 | disposition home or self-care (01) ==
LOC: ANHLAB 14:15
PROVIDERS: PCP Nurse Practitioner Family; Visit Provider Obstetrics & Gynecology
DX: D64.9 Anemia, unspecified (principal); N92.0 Excessive and frequent menstruation with regular cycle; N93.9 Abnormal uterine and vaginal bleeding, unspecified
CPT/HCPCS: 36415; 82672; 82728; 83001; 83002; 83021; 83540; 84443; 85027; 85055; 85610; 85730

== ENCOUNTER 2024-12-18 12:29 | Outpatient (CLI) | payer MEDICARE, MEDICAID, SELFPAY ==
--- NOTE | ~2024-12-18 | MM_ITS ---
EXAMINATION: MM screening jordan BI w dariusz HISTORY: Baseline screening mammography TECHNIQUE: Craniocaudal and mediolateral oblique 3-D tomosynthesis images were obtained and synthetic 2-D images were generated. CAD analysis was submitted and interpreted. COMPARISON: None BREAST PARENCHYMAL COMPOSITION: The breasts are heterogeneously dense, which may obscure small masses . FINDINGS: Punctate calcifications are detected bilaterally, morphologically benign in appearance. Unremarkable parenchymal pattern without suspicious microcalcifications, architectural distortion, di screte masses or significant asymmetry. IMPRESSION: 1. No mammographic evidence of malignancy. 2. Recommend routine screening mammography in one year. BI-RADS Category 2: Benign finding(s). Reviewed, dictated and finalized at location A.
--- OUTSIDE RECORDS SUMMARY | 2024-12-18 14:09 | XMS_ITS | Clinical Summary ---
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 Gender Identity Not on file Sexual Orientation Not on file Plan of Treatment Upcoming Encounters Date Type Department Care Team (Late st Contact Info) Description 01/17/2025 11:30 AM CDT Office Visit [facility] Oncology and Hematology - [place] [address] [place] [address] Angela Lucia MD [address] [place] [address] Health Maintenance Due Date Last Done Comments DTAP/TDAP/TD VACCINES (1 - Tdap) 2002 HEPATITIS B VACCINES (1 of 3 - 19+ 3-dose series) 2002 PAP SMEAR 2004 CERVICAL CANCER SCREENING 2013 HPV/Cotest 2013 PAP SMEAR 2013 BREAST CANCER SCREENING 2023 INFLUENZA VACCINE (#1) 2024 HPV VACCINES Aged Out No longer eligi ble based on patient's age to complete this topic Insurance [facility] MCR
--- OUTSIDE RECORDS SUMMARY | 2024-12-18 14:09 | XMS_ITS | Clinical Summary ---
Author Organization [facility] Medical Office Building B Address [address] [place] [address] Care Team Providers Care Cotton Classer Aide Name Role Phone Jovany Zhou MD Primary Care Provider [phone] Allergies No known active allergies Medications albuterol [...] on file Legal Sex Female 12:27 PM ATG ARCHITECT Gender Identity Not on file Sexual Orientation [...] Comments Blood Pressure 136/80 09/28/2017 1:15 PM ATG ARCHITECT Pulse - - Temperature - - Respiratory Rate - - Oxygen Saturation - - Inhaled Oxygen Concentration - - Weight 68 kg (150 lb) 09/28/2017 1:15 PM ATG ARCHITECT Height 160 cm (5' 3 ) 09/28/2017 1:15 PM ATG ARCHITECT Body Mass Index 26.57 09/28/2017 1:15 PM ATG ARCHITECT Plan of Treatment Not on file Insurance MEDICARE Care Teams Cotton Classer Aide Relationship Specialty Start Date End Date Jovany Zhou MD [address] [place] [address] PCP - General Family Medicine 06/17/17
--- OUTSIDE RECORDS SUMMARY | 2024-12-18 14:09 | XMS_ITS | Referral Summary ---
Author Organization [facility] Medical Office Building B Address [address] [place] [address] Care Team Providers Care Bicycle Mechanic Name Role Phone Jovany Zhou MD Primary Care Provider [phone] Allergies No known active allergies Medications albuterol [...] on file Legal Sex Female 12:27 PM SERVICE ATTENDANT CAFETERIA Gender Identity Not on file Sexual Orientation Not on file Last Filed Vital Signs Vital Sign Reading Time Taken Comments Blood Pressure 136/80 09/28/2017 1:15 PM SERVICE ATTENDANT CAFETERIA Pulse - - Temperature - - Respiratory Rate - - Oxygen Saturation - - Inhaled Oxygen Concentration - - Weight 68 kg (150 lb) 09/28/2017 1:15 PM SERVICE ATTENDANT CAFETERIA Height 160 cm (5' 3 ) 09/28/2017 1:15 PM SERVICE ATTENDANT CAFETERIA Body Mass Index 26.57 09/28/2017 1:15 PM SERVICE ATTENDANT CAFETERIA Plan of Treatment Not on file Insurance MEDICARE Care Teams Bicycle Mechanic Relationship Specialty Start Date End Date Jovany Zhou MD [address] [place] [address] PCP - General Family Medicine 06/17/17
== END 2024-12-18 12:30 | disposition home or self-care (01) ==
LOC: CHSIMG 12:31
PROVIDERS: PCP Nurse Practitioner Family; Visit Provider Obstetrics & Gynecology
DX: Z12.31 Encounter for screening mammogram for malignant neoplasm of breast (principal)
CPT/HCPCS: 77063; 77067

== ENCOUNTER 2024-12-25 16:01 | Outpatient (CLI) | payer MEDICARE, MEDICAID, SELFPAY ==
--- NOTE | ~2024-12-25 | US_ITS ---
EXAM: PELVIC ULTRASOUND HISTORY: N92.0 - Excessive and frequent menstruation with regular ... 2 para 3 Uncertain last menstrual period. COMPARISON: None. FINDINGS: UTERUS: 10.9 x 4.8 x 7.9 cm. The uterus is anteverted and anteflexed. The endometrial complex measures 18 mm, and is heterogeneous in echotexture. 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 This finding is not appreciated on the current examination. A suspected subserosal fibroid is identified within the posterior body of the uterus measuring 19.5 x 11.7 x 19.3 mm. RIGHT OVARY: The right ovary is unremarkable in echogenicity and size measuring 3.7 x 1.8 x 2.5 cm. Dopplerable flow is identified. LEFT OVARY: The left ovary is unremarkable in echogenicity and size measuring 2.6 x 1.3 x 2.2 cm Dopplerable flow is identified. No free fluid is identified within the pelvis. IMPRESSION: Suspected subserosal fibroid within the posterior body of the uterus, as detailed above. The endometrial complex is thickened and heterogeneous. Reviewed, dictated and finalized at location A. IMPRESSION: Suspected subserosal fibroid within the posterior body of the uterus, as detail ed above. The endometrial complex is thickened and heterogeneous.
--- OUTSIDE RECORDS SUMMARY | 2024-12-25 17:21 | XMS_ITS | Clinical Summary ---
Author Organization [facility] Eufemia huitron Alyssa Address [address] [place] [address] Care Team Providers Care User Experience Analyst Name Role Phone Unavailable Primary Care Provider Unavailabl e Social History Tobacco Use Types Packs/Day Years Used Date Smoking Tobacco: Never Assessed Comments Unknown Sex and Gender Information Value Date Recorded Sex Assigned at Not on file Legal Sex Female 3:35 PM LOCAL SALES MANAGER Gender Identity Not on file Sexual Orientation Not on file Plan of Treatment Upcoming Encounters Date Type Department Care Team (Late st Contact Info) Description 01/17/2025 11:30 AM CDT Office Visit [facility] Oncology and Hematology - [place] [address] [place] [address] Angela Lucia MD [address] [place] [address] Health Maintenance Due Date Last Done Comments DTAP/TDAP/TD VACCINES (1 - Tdap) 2002 HEPATITIS B VACCINES (1 of 3 - 19+ 3-dose series) 2002 HPV/Cotest (21-29) 2004 PAP SMEAR 2004 CERVICAL CANCER SCREENING 2013 HPV/Cotest (30-65) 2013 PAP SMEAR 2013 BREAST CANCER SCREENING 2023 INFLUENZA VACCINE (#1) 2024 Medicare [place]age ([place] Preventative Visit/Annual Wellness Visit 09/27/2024 HPV VACCINES Aged Out No longer eligi ble based on patient's age to complete this topic Insurance [facility]
--- OUTSIDE RECORDS SUMMARY | 2024-12-25 17:21 | XMS_ITS | Referral Summary ---
Author Organization [facility] Medical Office Building B Address [address] [place] [address] Care Team Providers Care Help Desk Engineer Name Role Phone Jovany Zhou MD Primary Care Provider [phone] Allergies No known active allergies Medications albuterol [...] on file Legal Sex Female 12:27 PM FACEPIECE LINE SUPERVISOR Gender Identity Not on file Sexual Orientation Not on file Last Filed Vital Signs Vital Sign Reading Time Taken Comments Blood Pressure 136/80 09/28/2017 1:15 PM FACEPIECE LINE SUPERVISOR Pulse - - Temperature - - Respiratory Rate - - Oxygen Saturation - - Inhaled Oxygen Concentration - - Weight 68 kg (150 lb) 09/28/2017 1:15 PM FACEPIECE LINE SUPERVISOR Height 160 cm (5' 3) 09/28/2017 1:15 PM FACEPIECE LINE SUPERVISOR Body Mass Index 26.57 09/28/2017 1:15 PM FACEPIECE LINE SUPERVISOR Plan of Treatment Not on file Insurance MEDICARE Care Teams Help Desk Engineer Relationship Specialty Start Date End Date Jovany Zhou MD [address] [place] [address] PCP - General Family Medicine 06/17/17
--- OUTSIDE RECORDS SUMMARY | 2024-12-25 17:21 | XMS_ITS | Clinical Summary ---
Author Organization [facility] Medical Office Building B Address [address] [place] [address] Care Team Providers Care Surveillance Agent Name Role Phone Jovany Zhou MD Primary Care Provider [phone] Allergies No known active allergies Medications albuterol [...] on file Legal Sex Female 12:27 PM CHANNEL DEVELOPMENT DIRECTOR Gender Identity Not on file Sexual Orientation [...] Comments Blood Pressure 136/80 09/28/2017 1:15 PM CHANNEL DEVELOPMENT DIRECTOR Pulse - - Temperature - - Respiratory Rate - - Oxygen Saturation - - Inhaled Oxygen Concentration - - Weight 68 kg (150 lb) 09/28/2017 1:15 PM CHANNEL DEVELOPMENT DIRECTOR Height 160 cm (5' 3) 09/28/2017 1:15 PM CHANNEL DEVELOPMENT DIRECTOR Body Mass Index 26.57 09/28/2017 1:15 PM CHANNEL DEVELOPMENT DIRECTOR Plan of Treatment Not on file Insurance MEDICARE Care Teams Surveillance Agent Relationship Specialty Start Date End Date Jovany Zhou MD [address] [place] [address] PCP - General Family Medicine 06/17/17
== END 2024-12-25 16:02 | disposition home or self-care (01) ==
PROVIDERS: PCP Nurse Practitioner Family; Visit Provider Obstetrics & Gynecology
DX: N92.0 Excessive and frequent menstruation with regular cycle (principal); R93.5 Abnormal findings on diagnostic imaging of other abdominal regions, including retroperitoneum
CPT/HCPCS: 76830; 76856

== ENCOUNTER 2025-01-17 13:05 | Outpatient (CLI) | payer MEDICARE, MEDICAID, SELFPAY ==
[2025-01-17 13:19] LABS: Basophils Absolute Auto 0.1 K/mm3 (0.0-0.1); Basophils Percent Auto 0.7 % (0.2-1.2); Eosinophils Absolute Auto 0.1 K/mm3 (0-0.3); Eosinophils Percent Auto 1.2 % (0-4.4); Hematocrit 40.9 % (37.0-47.0); Hemoglobin 12.8 g/dL (12.0-15.0); Immature Granulocyte Absolute 0.02 K/mm3 (0.00-0.031); Immature Granulocyte Percent A 0.2 % (0-0.5); Lymphocytes Absolute Auto 1.97 K/mm3 (0.9-3.2); Lymphocytes Percent Auto 22.8 % (18.3-44.2); Mean Corpuscular HGB Conc 31.3 g/dl (32-36); Mean Corpuscular Hemoglobin 26.2 pg (26-34); Mean Corpuscular Volume 83.6 fl (80-100); Mean Platelet Volume 11.4 fl (7.4-10.4); Monocytes Absolute Auto 0.7 K/mm3 (0.1-0.6); Monocytes Percent Auto 8.6 % (2.6-8.5); Neutrophils Absolute Auto 5.8 K/mm3 (1.3-6.7); Neutrophils Percent Auto 66.5 % (45.5-73.1); Platelet Count Result 302 k/mm3 (150-375); Red Blood Count 4.89 M/mm3 (4.2-5.4); Red Cell Distribution Width 13.2 % (11.5-14.5); White Blood Count 8.6 K/mm3 (4.5-10.0)
--- OUTSIDE RECORDS SUMMARY | 2025-01-17 14:42 | XMS_ITS | Referral Summary ---
Author Organization [facility] Medical Office Building B Address [address] [place] [address] Care Team Providers Care Customer Service Specialist Name Role Phone Jovany Zhou MD Primary Care Provider [phone] Allergies No known active allergies Medications albuterol [...] on file Legal Sex Female 12:27 PM JET WORKER Gender Identity Not on file Sexual Orientation Not on file Last Filed Vital Signs Vital Sign Reading Time Taken Comments Blood Pressure 136/80 09/28/2017 1:15 PM JET WORKER Pulse - - Temperature - - Respiratory Rate - - Oxygen Saturation - - Inhaled Oxygen Concentration - - Weight 68 kg (150 lb) 09/28/2017 1:15 PM JET WORKER Height 160 cm (5' 3 ) 09/28/2017 1:15 PM JET WORKER Body Mass Index 26.57 09/28/2017 1:15 PM JET WORKER Plan of Treatment Not on file Insurance MEDICARE Care Teams Customer Service Specialist Relationship Specialty Start Date End Date Jovany Zhou MD [address] [place] [address] PCP - General Family Medicine 06/17/17
--- OUTSIDE RECORDS SUMMARY | 2025-01-17 14:42 | XMS_ITS | Clinical Summary ---
Author Organization [facility] Medical Office Building B Address [address] [place] [address] Care Team Providers Care Electronics Parts Sales Representative Name Role Phone Jovany Zhou MD Primary Care Provider [phone] Allergies No known active allergies Medications albuterol [...] on file Legal Sex Female 12:27 PM HARP MAKER Gender Identity Not on file Sexual Orientation [...] Comments Blood Pressure 136/80 09/28/2017 1:15 PM HARP MAKER Pulse - - Temperature - - Respiratory Rate - - Oxygen Saturation - - Inhaled Oxygen Concentration - - Weight 68 kg (150 lb) 09/28/2017 1:15 PM HARP MAKER Height 160 cm (5' 3 ) 09/28/2017 1:15 PM HARP MAKER Body Mass Index 26.57 09/28/2017 1:15 PM HARP MAKER Plan of Treatment Not on file Insurance MEDICARE Care Teams Electronics Parts Sales Representative Relationship Specialty Start Date End Date Jovany Zhou MD [address] [place] [address] PCP - General Family Medicine 06/17/17
--- OUTSIDE RECORDS SUMMARY | 2025-01-17 14:42 | XMS_ITS | Clinical Summary ---
Author Organization [facility] Eufemia Zavala Address [address] [place] [address] Care Team Providers Care Naval Aircrewman Helicopter Name Role Phone Unavailable Primary Care Provider Unavailabl e Allergies No known active allergies Medications ferrous sulfate 325 mg (65 mg iron) tablet Take 325 mg by mouth 2 times daily with meals. 12/15/2024 Active CALCIUM CITRATE-VITAMIN D3 ORAL Take by mouth daily. Active ondansetron (ZOFRAN ODT) 4 mg Tablet, Rapid Dissolve Take 4 mg by mouth every 12 hours as needed for Nausea. 01/10/2025 Active pantoprazole (PROTONIX) 40 mg Tablet, Delayed Release (E.C.) Take 1 Tablet by mouth daily. 01/10/2025 Active Encounters Date Type Department Care Team Description 01/17/2025 11:30 AM CDT Office Visit [facility] Oncology and Hematology - [place] [address] [address] Angela Lucia MD Iron deficiency anemia, unspecified iron deficiency anemia type (Primary Dx) from Last 3 Months Family History * Patient is adopted Medical History Relation Name Comments No Known Problems Brother 1 No Known Problems Brother 2 No Known Problems Brother 3 No Known Problems Child 1 No Known Problems Child 2 No Known Problems Child 3 No Known Problems Father No Known Problems Mother No Known Problems Sister 1 No Known Problems Sister 2 Relation Name Status Comments Brother 1 Alive Brother 2 Alive Brother 3 Alive Child 1 Alive Child 2 Alive Child 3 Alive Father Mother Sister 1 Alive Sister 2 Alive Social History Tobacco Use Types Packs/Day Years Used Date Smoking Tobacco: Every Day Cigarettes 1 27.3 Started: 1997 Cigars Alcohol Use Standard Drinks/Week Comments Yes 0 (1 standard drink = 0.6 oz pur e alcohol) Occasionally Comments Unknown Sex and Gender Information Value Date Recorded Sex Assigned at Not on file Legal Sex Female 3:35 PM PARACHUTE MENDER Gender Identity Not on file Sexual Orientation Not on file Last Filed Vital Signs Vital Sign Reading Time Taken Comments Blood Pressure 124/89 01/17/2025 11:08 AM CDT Pulse 69 01/17/2025 11:08 AM CDT Temperature 36.5 C (97.7 F) 01/17/2025 11:08 AM CDT Respiratory Rate 16 01/17/2025 11:08 AM CDT Oxygen Saturation 98% 01/17/2025 11:08 AM CDT Inhaled Oxygen Concentration - - Weight 75.6 kg (166 lb 9.6 oz) 01/17/2025 11:08 AM CDT Height 160 cm (5' 3 ) 01/17/2025 11:08 AM CDT Body Mass Index 29.51 01/17/2025 11:08 AM CDT Plan of Treatment Upcoming Encounters Date Type Department Care Team (Late st Contact Info) Description 04/26/2025 11:45 AM CDT Office Visit [facility] Oncology and Hematology [facility] [address] [place] [address] [facility] [address] [place] [address] Micky Marie MD [address] [facility] [address] [place] [address] Health Maintenance Due Date Last Done Comments DTAP/TDAP/TD VACCINES (1 - Tdap) 2002 HEPATITIS B VACCINES (1 of 3 - 19+ 3-dose series) 2002 HPV/Cotest (21-29) 2004 CERVICAL CANCER SCREENING 2013 HPV/Cotest (30-65) 2013 PAP SMEAR 2013 BREAST CANCER SCREENING 2023 INFLUENZA VACCINE (#1) 2024 Medicare [place] ([place]) Preventative Visit/Annual Wellness Visit 09/27/2024 09/28/2017 HPV VACCINES Aged Out No longer eligi ble based on patient's age to complete this topic Insurance [place] [address]
--- OUTSIDE RECORDS SUMMARY | 2025-01-17 14:42 | XMS_ITS | Encounter Summary ---
Author Organization [facility] [employer] [facility] Address [address] [place] [address] Care Team Providers Care Plush Brusher Name Role Phone Unavailable Primary Care Provider Unavailabl e Encounter Details Date Type Department Care Team (Late st Contact Info) Description 01/17/2025 11:30 AM CDT Office Visit [facility] Oncology and Hematology - [place] [address] [place] [address] Angela Lucia MD [address] [place] [address] Iron deficiency anemia, unspecified iron deficiency anemia type (Primary Dx) Social History Tobacco Use Types Packs/Day Years Used Date Smoking Tobacco: Every Day Cigarettes 1 27.3 Started: 1997 Cigars Alcohol Use Standard Drinks/Week Comments Yes 0 (1 standard drink = 0.6 oz pur e alcohol) Occasionally Comments Unknown Sex and Gender Information Value Date Recorded Sex Assigned at Not on file Legal Sex Female 3:35 PM LION TRAINER Gender Identity Not on file Sexual Orientation Not on file documented as of this encounter Last Filed Vital Signs Vital Sign Reading [...] Mass Index 29.51 01/17/2025 11:08 AM CDT documented in this encounter Plan of Treatment Upcoming Encounters Date Type Department Care Team (Late st Contact Info) Description 04/26/2025 11:45 AM CDT Office Visit [facility] Oncology and Hematology - [place] [address] [facility] [address] [place] [address] Micky Marei MD [address] [facility] [address] [place] [address] Scheduled Orders Name Type Priority Associated Diagnoses Orde r Schedule CBC WITH DIFFERENTIAL Lab Routine Iron deficiency anemia, unspecified iron deficiency anemia type Expected: 01/17/2025, Expires: 01/17/2026 COMPREHENSIVE METABOLIC PANEL Lab Routine Iron deficiency anemia, unspecified iron deficiency anemia type Expected: 01/17/2025, Expires: 01/17/2026 IRON, TIBC, AND PERCENT SATURATION Lab Routine Iron deficiency anemia, unspecified iron deficiency anemia type Expected: 01/17/2025, Expires: 01/17/2026 FERRITIN Lab Routine Iron deficiency anemia, unspecified iron deficiency anemia type Expected: 01/17/2025, Expires: 01/17/2026 VITAMIN B12 AND FOLATE Lab Routine Iron deficiency anemia, unspecified iron deficiency anemia type Expected: 01/17/2025, Expires: 01/17/2026 CBC WITH DIFFERENTIAL Lab Routine Iron deficiency anemia, unspecified iron deficiency anemia type Expected: 04/18/2025, Expires: 01/17/2026 COMPREHENSIVE METABOLIC PANEL Lab Routine Iron deficiency anemia, unspecified iron deficiency anemia type Expected: 04/18/2025, Expires: 01/17/2026 IRON, TIBC, AND PERCENT SATURATION Lab Routine Iron deficiency anemia, unspecified iron deficiency anemia type Expected: 04/18/2025, Expires: 01/17/2026 FERRITIN Lab Routine Iron deficiency anemia, unspecified iron deficiency anemia type Expected: 04/18/2025, Expires: 01/17/2026 VITAMIN B12 AND FOLATE Lab Routine Iron deficiency anemia, unspecified iron deficiency anemia type Expected: 04/18/2025, Expires: 01/17/2026 documented as of this encounter Visit Diagnoses Diagnosis Iron deficiency anemia, unspecified iron deficiency anemia type- Primary documented in this encounter
[2025-01-17 17:13] LABS: Iron 355 ug/dL (37-170)
[2025-01-17 17:24] LABS: Percent Iron Saturation 92 % (20-50)
[2025-01-17 17:41] LABS: Alanine Aminotransferase 13 U/L (6-35); Albumin Level 4.5 g/dL (3.5-5.1); Alkaline Phosphatase 103 U/L (38-126); Anion Gap 12 mmol/L (4-12); Aspartate Amino Transferase 42 U/L (14-36); Bilirubin,Total 0.3 mg/dL (0.2-1.3); Blood Urea Nitrogen 6 mg/dL (7-17); Carbon Dioxide 21 mmol/L (22-30); Chloride 105 mmol/L (98-107); Estimated Glomerular Filt Rate > 60; Glucose 108 mg/dL (65-110); Potassium 3.9 mmol/L (3.4-5.0); Sodium 138 mmol/L (137-145)
[2025-01-17 17:49] LABS: Ferritin 7.78 ng/mL (6.24-137)
[2025-01-17 18:46] LABS: Folic Acid 5.6 ng/mL (2.76->20)
== END 2025-01-17 13:06 | disposition home or self-care (01) ==
PROVIDERS: PCP Nurse Practitioner Family; Visit Provider Internal Medicine Hematology & Oncology
DX: D50.9 Iron deficiency anemia, unspecified (principal)
CPT/HCPCS: 36415; 80053; 82607; 82728; 82746; 83540; 83550; 85025

== ENCOUNTER 2025-03-23 10:01 | Outpatient (CLI) | payer MEDICARE, SELFPAY ==
[2025-03-23 10:12] LABS: Hematocrit 35.4 % (35.0-49.0); Hemoglobin 10.1 g/dL (12.0-15.0)
== END 2025-03-23 10:02 | disposition home or self-care (01) ==
LOC: CHSLAB 10:02
PROVIDERS: PCP Nurse Practitioner Family; Visit Provider Anesthesiology
DX: D64.9 Anemia, unspecified (principal)
CPT/HCPCS: 36415; 85014; 85018

== ENCOUNTER 2025-03-28 00:41 | Day surgery (SDC) | payer MEDICARE, MEDICAID, SELFPAY ==
[2025-03-21 14:12] VITALS: BMI 29.6
--- NOTE | 2025-03-21 14:14 | PC.NURSE ---
Report to the Outpatient Waiting Room, entrance under the green pavilion located off [facility], at time _0830_ on date _[id number]_. Planned Procedure Time: _1030_.? Time changes happen often and if your time is changed the preop area will call you the afternoon before. - You and your visitor will be asked to self-screen and do not enter if you have any COVID symptoms. Please call surgeon if you need to reschedule. - A mask is optional within the hospital at this time. Patients may have clear liquids (water, carbonated beverages, clear teas, apple juice) until 3 hours prior to surgery with a maximum of 20 ounces. - No food from midnight until time of surgery and no smoking, or chewing tobacco (or any form of nicotine). No chewing gum, candy or mints. Take only the following medications with a SIP of water on the morning of surgery: __None____ DO NOT STOP ANY OF YOUR OTHER PRESCRIPTION MEDICATIONS PRIOR TO SURGERY EXCEPT THE FOLLOWING Hold all vitamins and supplements for 3 days per anesthesiologist. Medications to discontinue per physician Please check with Dr Garcia's office before taking any more Aleve. Date to take last dose____ Please no make-up, nail mongolian, hairspray, perfume, deodorant, or body powder the day of surgery.? No jewelry (including any body piercings) or valuables the day of surgery, leave them at home.? Please take a shower or bath the night before, or the morning of, surgery with an antibacterial soap.? Wear comfortable, loose fitting clothing.? - Jewelry must be removed prior to entering the operating room.? Rings and piercings that are not removed may be cut off. - The hospital will not accept responsibility for valuables.? - Please leave all valuables, including medications, at home the day of surgery. If you are going home after surgery, a licensed concrete truck driver must drive you home.? - NO public transportation without another adult if you receive anesthesia. - We recommend that an adult stay with you for 24 hours following discharge. - We also recommend that you do not drive, make important decision, drink alcoholic beverages, or take any drugs that were not prescribed by your health care provider for at least 24 hours after your discharge time. Follow any additional instructions given to you from your surgeon. Telephone instructions given to __Crystal__and asked if any additional questions and then verbalized understanding. Patient advised to call surgeon office or pre surgery nurse liaison [phone] if any additional questions.
--- OUTSIDE RECORDS SUMMARY | 2025-03-28 00:43 | XMS_ITS | Clinical Summary ---
Author Organization [facility] Address [address] [place] [address] Care Team Providers Care Sterile Process Coordinator Name Role Phone Jovany Zhou MD Primary Care Provider [phone] Allergies No known active allergies Medications albuterol [...] on file Legal Sex Female 12:27 PM CLINICAL THERAPIST Gender Identity Not on file Sexual Orientation [...] Comments Blood Pressure 136/80 09/28/2017 1:15 PM CLINICAL THERAPIST Pulse - - Temperature - - Respiratory Rate - - Oxygen Saturation - - Inhaled Oxygen Concentration - - Weight 68 kg (150 lb) 09/28/2017 1:15 PM CLINICAL THERAPIST Height 160 cm (5' 3) 09/28/2017 1:15 PM CLINICAL THERAPIST Body Mass Index 26.57 09/28/2017 1:15 PM CLINICAL THERAPIST Plan of Treatment Not on file Insurance MEDICARE Care Teams Sterile Process Coordinator Relationship Specialty Start Date End Date Jovany Zhou MD [address] [place] [address] PCP - General Family Medicine 06/17/17
--- OUTSIDE RECORDS SUMMARY | 2025-03-28 00:43 | XMS_ITS | Referral Summary ---
Author Organization [facility] Office Building [facility] Address [address] [place] [address] Care Team Providers Care Eyeglass Frames Polisher Name Role Phone Jovany Zhou MD Primary Care Provider [phone] Allergies No known active allergies Medications albuterol [...] on file Legal Sex Female 12:27 PM CHEMICAL STRENGTH TESTER Gender Identity Not on file Sexual Orientation Not on file Last Filed Vital Signs Vital Sign Reading Time Taken Comments Blood Pressure 136/80 09/28/2017 1:15 PM CHEMICAL STRENGTH TESTER Pulse - - Temperature - - Respiratory Rate - - Oxygen Saturation - - Inhaled Oxygen Concentration - - Weight 68 kg (150 lb) 09/28/2017 1:15 PM CHEMICAL STRENGTH TESTER Height 160 cm (5' 3) 09/28/2017 1:15 PM CHEMICAL STRENGTH TESTER Body Mass Index 26.57 09/28/2017 1:15 PM CHEMICAL STRENGTH TESTER Plan of Treatment Not on file Insurance MEDICARE Care Teams Eyeglass Frames Polisher Relationship Specialty Start Date End Date Jovany Zhou MD [address] [place] [address] PCP - General Family Medicine 06/17/17
--- OUTSIDE RECORDS SUMMARY | 2025-03-28 00:43 | XMS_ITS | Clinical Summary ---
[facility] Address [address] [facility] [place] [place] [address] Care Team Providers Care Plate Gauger Name Role Phone Unavailable Primary Care Provider [...] 1 Tablet by mouth daily. 01/10/2025 Active Active Problems No known active problems Encounters Date Type Department Care Team Description 03/13/2025 External Device Data STL ABSTRACTION Provider, Abstract 02/15/2025 External Device Data STL ABSTRACTION Provider, Abstract 02/14/2025 External Device Data STL ABSTRACTION Provider, Abstract 02/13/2025 External Device Data STL ABSTRACTION Provider, Abstract 01/30/2025 Telephone [facility] Oncology and Hematology - [place] [address] [place] [address] Micky Marie MD Lab Results 01/23/2025 External Device Data STL ABSTRACTION Provider, Abstract 01/23/2025 External Device Data STL ABSTRACTION Provider, Abstract 01/23/2025 External Device Data STL ABSTRACTION Provider, Abstract 01/18/2025 Orders Only [facility] Oncology [facility] Hematology [place] [address] [place] [address] Micky Marie MD 01/17/2025 11:30 AM CDT Office Visit [facility] Oncology and Hematology - [place] [address] [place] [address] Angela Lucia MD Iron deficiency anemia, unspecified iron deficiency anemia type (Primary Dx) 01/17/2025 Orders Only [facility] Oncology and Hematology - [place] [address] [place] [address] Micky Marie MD from Last 3 Months Family History * [...] Date Smoking Tobacco: Every Day Cigarettes 1 27.5 Started: 1997 Cigars Alcohol Use Standard Drinks/Week Comments Yes 0 (1 standard drink = 0.6 oz pur e alcohol) Occasionally Comments Unknown Sex and Gender Information Value Date Recorded Sex Assigned at Not on file Legal Sex Female 3:35 PM COLDFUSION Gender Identity Not on file Sexual Orientation [...] 11:08 AM CDT Height 160 cm (5' 3) 01/17/2025 11:08 AM CDT Body Mass Index 29.51 01/17/2025 11:08 AM CDT Plan of Treatment Upcoming Encounters Date Type Department Care Team (Late st Contact Info) Description 04/26/2025 11:45 AM CDT Office Visit [facility] Oncology and Hematology [facility] [address] [facility] [address] [place] [address] Micky Marie MD [address] [facility] [address] [place] [address] Health Maintenance Due Date Last Done Comments Pre-Diabetes and Diabetes Screening 1983 DTAP/TDAP/TD VACCINES (1 - Tdap) 2002 HEPATITIS B VACCINES (1 of 3 - 19+ 3-dose series) 2002 HPV/Cotest (21-29) 2004 CERVICAL CANCER SCREENING 2013 HPV/Cotest (30-65) 2013 PAP SMEAR 2013 BREAST CANCER SCREENING 2023 INFLUENZA VACCINE (#1) 2024 HPV VACCINES Aged Out No longer eligi ble based on patient's age to complete this topic Procedures Procedure Name Priority Date/Time Associated Diagnosis Comments CBC MIXED CELL DIFFERENTIAL Routine 01/17/2025 3:08 PM CDT COMPREHENSIVE METABOLIC PANEL Routine 01/17/2025 11:51 AM CDT from Last 3 Months Results * CBC MIXED CELL DIFFERENTIAL (01/17/2025 3:08 PM CDT) Blood us Micky Marie MD HEMATOLOGY ORDERABLES Final Res ult * COMPREHENSIVE METABOLIC PANEL (01/17/2025 11:51 AM CDT) Blood us Micky Marie MD CHEMISTRY ORDERABLES Final Resu lt from Last 3 Months Insurance [facility] MCR
[2025-03-28 08:10] VITALS: BP 136/95; PULSE 83; RESP 18; TEMP 36.3; O2SAT 100
[2025-03-28 08:16] LABS: BEDSIDEPREGUCG Negative (Negative)
[2025-03-28] MEDS: ACETAMINOPHEN 500 MG TABLET 1000 MG PO (08:27)
[2025-03-28] MEDS: LACTATED RINGERS 1,000 ML 30 ML IV CONT (08:30)
--- NOTE | 2025-03-28 09:14 | WPDANESEPPF ---
Anes - Initial Pre Proc Eval Procedure: Operation Date: 03/28/25 10:30 Proposed Procedures p Hysteroscopy Dilation and Curettage with Intrauterine Device Insertion - Kye Garcai MD Date/Time: 03/28/25 09:14 Surgeon: Kye Garcia MD Pre Op Diagnosis: Menorrhagia, Thickened Endometrium complex Patient Data Age: 39 Gender: F Height: 1.6 m Weight: 76.36 kg Last Vital Signs Temp 36.3 C L 03/28/25 08:10 Pulse 83 03/28/25 08:10 Resp 18 03/28/25 08:10 BP 136/95 H 03/28/25 08:10 Pulse Ox 100 03/28/25 08:10 O2 Del Method Room Air 03/28/25 08:10 Allergies Allergy/AdvReac Type Severity Reaction Status Date / Time No Known Allergies Allergy Verified 03/28/25 08:13 Home Medications ?Medication ?Instructions ?Recorded ?Confirmed ?Type cholecalciferol (vitamin D3) 50 50 mcg PO DAILY #30 caps 11/08/24 03/28/25 Rx mcg (2,000 unit) capsule ferrous sulfate 325 mg (65 mg 325 mg PO BIDWM #60 tabs 01/10/25 03/28/25 Rx iron) tablet (Iron (ferrous sulfate)) pantoprazole 40 mg tablet,delayed 40 mg PO PRN #30 tabs 02/08/25 03/21/25 Rx release sumatriptan succinate 25 mg tablet See Rx Instructions .Route 03/19/25 03/21/25 Rx .COMPLEX #10 tabs naproxen sodium 220 mg capsule 440 mg PO BID PRN pain 03/21/25 03/21/25 History (Aleve) ondansetron 4 mg disintegrating See Rx Instructions .Route 03/21/25 03/21/25 Rx tablet .COMPLEX #60 tabs Laboratory Tests 03/28/25 08:14 POC Urine HCG, Qual Negative (Negative) Patient hx anesthesia problems: none Family hx anesthesia problems: none Results Review: All pre-operative results and documents have been reviewed as part of the pre-operative evaluation. [facility] Past Medical History Medical History Migraine Asthma Anxiety Anemia Iron deficiency anemia Insect bite of foot Cerebral palsy multiple surgeries Surgical History Surgical History H/O tubal ligation History of surgery on lower extremity leg and heel Family History Family History Mother Family history of type 2 diabetes mellitus Other Cerebrovascular accident Hypertension Social History Social History Smoking packs per day: 1 Smoking cigarettes per day: 20.0 Years smoked: 25 Smoking pack-years: 25.00 Smoking status: Current every day smoker Tobacco type: cigarettes Alcohol intake: current Substance use: never Substance use type: does not use Do You Feel Safe in your Home?: Yes Lack of Transportation: YES Lack of Food: Never True Current Housing: I Have Housing Concerned About Future Housing: No Difficulty Paying Gas/Electric Bills: No Difficulty Paying for Meds: No Currently Unemployed: No Education: Associate Degree Difficulty w/ Childcare or Family Care: No Living arrangements: with family Spiritual care concerns: No Anes - Eval Final PreProcedure Day of Procedure 03/28/25 09:14 Patient weight: normal Heart: regular rate and rhythm Lungs: clear to auscultation Airway: Mallampati scale class II Neurological: alert and oriented Last oral intake: >/= 8 hours ASA classification: III Emergent: no Anesthetic plan: proceed Anesthesia type and monitoring: general GIVS and standard monitoring Results Review: All pre-operative results and documents have been reviewed as part of the pre-operative evaluation. Informed Consent: The patient's anesthetic plan and its attendant risks and benefits were discussed with the patient/family/POA. Questions were solicited and answers provided to the satisfaction of the patient/family/POA.
[2025-03-28 09:39] LABS: BEDSIDEPREGUCG Negative (Negative)
--- NOTE | 2025-03-28 09:58 | WPDHPUPDATE1 ---
History and Physical Update Update Date/Time: 03/28/25 09:58 History and Physical has been reviewed, including an updated exam of the patient. There are NO changes in the patient's condition. Risks, benefits, and alternatives have been discussed and questions answered. Patient agrees to proceed with procedure.
[2025-03-28] MEDS: ceFAZolin 2 GM/D5W 50 ML 2 GM/50 ML BAG IVPB (10:57)
[2025-03-28] MEDS: LIDOCAINE 1% LOCAL INJ 10 ML VIAL INFILTRATE (11:11)
[2025-03-28] MEDS: KETOROLAC 15 MG/ML VIAL (*BKC) IV PUSH (11:22)
--- NOTE | 2025-03-28 11:26 | S_PTH ---
PATIENT: Maricarmen Smith LOC: [facility]#:[id number] AGE/SX: 39/F ROOM: RE03/28/[address]: Kye Garcia MD : 1985 BED: DIS: 03/28/2025 SPEC #: [id number] RECD: 03/28/25 13:16 STATUS: JULIAN REQ #: [id number] RICK: 03/28/25 11:[address]: Kye Garcia DEPT: [facility] Surgical RECD BY: Shahida Elena ENTERED: 03/28/25 13:17 SP TYPE: Surgical OTHR DR: Suzanne Skinner, MANAGER DATA WAREHOUSING Tissues: A - Endometrial Curettings Procedures: Hematoxylin and Eosin Stain Gross and Microscopic Level 4
[2025-03-28 11:30] VITALS: BP 114/59; PULSE 56; RESP 14; O2SAT 100
--- NOTE | 2025-03-28 11:31 | W.PM.PROC2 ---
Procedure Note - Detailed Date of Procedure 03/28/25 Pre-op Diagnosis Menorrhagia, Thickened Endometrium complex Post-op Diagnosis Same Procedure Performed Hysteroscopy with dilation and curettage and removal of endometrial lesions with Aveta instrument 2. Mirena IUD insertion. Surgeon Kye Garcia MD Anesthesia MAC and Local Indications Menorrhagia, thickened endometrial stripe Mirena IUD Lot [id number] exp 04/2027. Findings Uterus sound to 8cm, uterine cavity proliferative tissue and multiple polyp appearing structures. Removed with Aveta. Description of Procedure After informed consent was obtained patient was taken to the operating room and adequate IV sedation was administered. Attention was turned to the vagina. Speculum was inserted. Single-tooth tenaculum placed on the anterior lip of the cervix.10 cc of 1% lidocaine was injected at the cervical vaginal interface at the 2 and 5 and 8 and 10 position. The uterus was sounded to 8 cm. The cervix was dilated to an 6 Jorgensen dilator. The hysteroscope was inserted. The cavity appeared very proliferative tissue and multiple polyp appearing structures throughout the cavity. The of the instrument was inserted and the polyp structures were removed With the Aveta. The hysteroscope was removed. The Mirena IUD was then inserted per manufacture instructions. The string was cut to 3 cm. Tenaculum removed. hemostasis was noted at the tenaculum site. Sponge count correct. The patient taken to recovery in stable condition. Estimated Blood Loss 5 Drains No Packing No Pathology Yes ( Endometrial curettings and shavings) Complications No immediate complications Condition Stable Disposition Same day [facility] Billing Surgery - Charge Forward: Surgery Billing
[2025-03-28 12:00] VITALS: BP 113/57; PULSE 50; RESP 20
[2025-03-28 12:30] VITALS: BP 121/61; PULSE 66; RESP 20; O2SAT 66
[2025-03-28 12:55] VITALS: BP 117/61; PULSE 67; RESP 20
== END 2025-03-28 12:55 | disposition home or self-care (01) ==
PROVIDERS: PCP Nurse Practitioner Family; Visit Provider Obstetrics & Gynecology
PROC: 0U5B8ZZ Destruction of Endometrium, Via Natural or Artificial Opening Endoscopic (ICD-10-PCS; CPT 58563; principal; 2025-03-28 10:30)
DX: N92.0 Excessive and frequent menstruation with regular cycle (principal); D64.9 Anemia, unspecified; G80.9 Cerebral palsy, unspecified; F17.210 Nicotine dependence, cigarettes, uncomplicated
CPT/HCPCS: 58300; 58558; 88305; A9270; J0690; J1885; J2003; J2250; J2704; J3010; J7120

== ENCOUNTER 2025-04-17 14:23 | Outpatient (CLI) | payer MEDICARE, MEDICAID, SELFPAY ==
--- OUTSIDE RECORDS SUMMARY | 2025-04-17 14:29 | XMS_ITS | Referral Summary ---
Author Organization [facility] Address [address] [place] [address] Care Team Providers Care Fleet Maintenance Foreman Name Role Phone Jovany Zhou MD Primary Care Provider [phone] Allergies No known active allergies Medications albuterol [...] on file Legal Sex Female 12:27 PM OCCUPATIONAL HEALTH NURSE MANAGER Gender Identity Not on file Sexual Orientation Not on file Last Filed Vital Signs Vital Sign Reading Time Taken Comments Blood Pressure 136/80 09/28/2017 1:15 PM OCCUPATIONAL HEALTH NURSE MANAGER Pulse - - Temperature - - Respiratory Rate - - Oxygen Saturation - - Inhaled Oxygen Concentration - - Weight 68 kg (150 lb) 09/28/2017 1:15 PM OCCUPATIONAL HEALTH NURSE MANAGER Height 160 cm (5' 3) 09/28/2017 1:15 PM OCCUPATIONAL HEALTH NURSE MANAGER Body Mass Index 26.57 09/28/2017 1:15 PM OCCUPATIONAL HEALTH NURSE MANAGER Plan of Treatment Not on file Insurance MEDICARE Care Teams Fleet Maintenance Foreman Relationship Specialty Start Date End Date Jovany Zhou MD [address] [place] [address] PCP - General Family Medicine 06/17/17
--- OUTSIDE RECORDS SUMMARY | 2025-04-17 14:29 | XMS_ITS | Clinical Summary ---
Author Organization [facility] Address [address] [place] [address] Care Team Providers Care Insurance Claims Processor Name Role Phone Jovany Zhou MD Primary Care Provider [phone] Allergies No known active allergies Medications albuterol [...] on file Legal Sex Female 12:27 PM SPORTS BOOK SERVER Gender Identity Not on file Sexual Orientation [...] Comments Blood Pressure 136/80 09/28/2017 1:15 PM SPORTS BOOK SERVER Pulse - - Temperature - - Respiratory Rate - - Oxygen Saturation - - Inhaled Oxygen Concentration - - Weight 68 kg (150 lb) 09/28/2017 1:15 PM SPORTS BOOK SERVER Height 160 cm (5' 3) 09/28/2017 1:15 PM SPORTS BOOK SERVER Body Mass Index 26.57 09/28/2017 1:15 PM SPORTS BOOK SERVER Plan of Treatment Not on file Insurance MEDICARE Care Teams Insurance Claims Processor Relationship Specialty Start Date End Date Jovany Zhou MD [address] [place] [address] PCP - General Family Medicine 06/17/17
[2025-04-17 14:50] LABS: Hematocrit 32.0 % (35.0-49.0); Hemoglobin 8.9 g/dL (12.0-15.0); Immature Granulocyte Percent A 0.3 % (0.0-0.0); Immature Platelet Fraction Pct 6.1 % (1.0-7.0); Lymphocytes Absolute Auto 1.68 K/mm3 (1.10-4.50); Mean Corpuscular HGB Conc 27.8 g/dL (32-36); Mean Corpuscular Hemoglobin 20.4 pg (27.0-31.0); Mean Corpuscular Volume 73.4 fL (78.0-102.0); Nucleated Red Blood Cells Absolute Auto 0.00 K/mm3 (0.00-0.00); Nucleated Red Blood Cells Perc 0.0 % (0-0.0); Platelet Count Result 241 K/mm3 (150-420); Red Blood Count 4.36 M/mm3 (4.20-5.40); White Blood Count 7.0 K/mm3 (4.8-10.8)
[2025-04-17 15:14] LABS: Alanine Aminotransferase 9 U/L (6-35); Albumin Level 4.1 g/dL (3.5-5.1); Alkaline Phosphatase 79 U/L (38-126); Anion Gap 5 mmol/L (4-12); Aspartate Amino Transferase 16 U/L (14-36); Bilirubin,Total 0.3 mg/dL (0.2-1.3); Blood Urea Nitrogen 4 mg/dL (7-17); Calcium 8.8 mg/dL (8.4-10.2); Carbon Dioxide 26 mmol/L (22-30); Chloride 108 mmol/L (98-107); Estimated Glomerular Filt Rate > 60; Glucose 82 mg/dL (65-110); Iron 21 ug/dL (37-170); Osmolality Calculated 283 mOsm/kg (285-295); Potassium 4.3 mmol/L (3.4-5.0); Sodium 139 mmol/L (137-145); Total Protein 6.9 g/dL (6.3-8.2)
[2025-04-17 15:23] LABS: Percent Iron Saturation 5 % (20-50)
[2025-04-17 15:50] LABS: Ferritin 3.78 ng/mL (6.24-137)
[2025-04-17 16:04] LABS: Vitamin B12 368.0 pg/mL (239-931)
== END 2025-04-17 14:24 | disposition home or self-care (01) ==
LOC: CHSLAB 14:25
PROVIDERS: PCP Nurse Practitioner Family; Visit Provider Internal Medicine
DX: D50.9 Iron deficiency anemia, unspecified (principal)
CPT/HCPCS: 36415; 80053; 82607; 82728; 83540; 83550; 85025; 85055

== ENCOUNTER 2025-04-18 17:10 | Emergency (ER) | payer MEDICARE, MEDICAID, SELFPAY ==
[2025-04-18 17:10] VITALS: BP 134/68; PULSE 88; RESP 18; TEMP 36.1; O2SAT 100
--- OUTSIDE RECORDS SUMMARY | 2025-04-18 17:18 | XMS_ITS | Encounter Summary ---
Author Organization [facility] Address [address] [place] [address] Care Team Providers Care Shearer Helper Name Role Phone Unavailable Primary Care Provider Unavailabl e Encounter Details Date Type Department Care Team ([facility] Contact Info) Description 04/18/2025 Orders Only [facility] Oncology and Hematology [place] [address] [place] [address] Micky Marie MD [facility] [address] [place] [address] Social History Tobacco Use Types Packs/Day Years Used Date Smoking Tobacco: Every Day Cigarettes 1 27.6 Started: 1997 Cigars Alcohol Use Standard Drinks/Week Comments Yes 0 (1 standard drink = 0.6 oz pur e alcohol) Occasionally Comments Unknown Sex and Gender Information Value Date Recorded Sex Assigned at Not on file Legal Sex Female 3:35 PM TICKET SALES SUPERVISOR Gender Identity Not on file Sexual Orientation Not on file documented as of this encounter Plan of Treatment Upcoming Encounters Date Type Department Care Team (Late Contact Info) Description 04/26/2025 11:45 AM CDT Office Visit [facility] Oncology and Hematology [place] [address] [place] [address] Micky Marie MD [address] [place] [address] documented as of this encounter Procedures Procedure Name Priority Date/Time Associated Diagnosis Comments COMPREHENSIVE METABOLIC PANEL Routine 04/17/2025 4:37 PM CDT documented in this encounter Results * COMPREHENSIVE METABOLIC PANEL (04/17/2025 4:37 PM CDT) Blood Micky Marie MD CHEMISTRY ORDERABLES Final Resu lt documented in this encounter Visit Diagnoses Not on filedocumented in this encounter
--- OUTSIDE RECORDS SUMMARY | 2025-04-18 17:18 | XMS_ITS | Clinical Summary ---
Author Organization [facility] Address [address] [place] [address] Care Team Providers Care Marriage And Family Therapist Name Role Phone Jovany Zhou MD Primary Care Provider [phone] Allergies No known active allergies Medications albuterol [...] on file Legal Sex Female 12:27 PM GOLF INSTRUCTOR Gender Identity Not on file Sexual Orientation [...] Comments Blood Pressure 136/80 09/28/2017 1:15 PM GOLF INSTRUCTOR Pulse - - Temperature - - Respiratory Rate - - Oxygen Saturation - - Inhaled Oxygen Concentration - - Weight 68 kg (150 lb) 09/28/2017 1:15 PM GOLF INSTRUCTOR Height 160 cm (5' 3) 09/28/2017 1:15 PM GOLF INSTRUCTOR Body Mass Index 26.57 09/28/2017 1:15 PM GOLF INSTRUCTOR Plan of Treatment Not on file Insurance MEDICARE Care Teams Marriage And Family Therapist Relationship Specialty Start Date End Date Jovany Zhou MD [address] [place] [phone] PCP - General Family Medicine 06/17/17
--- OUTSIDE RECORDS SUMMARY | 2025-04-18 17:18 | XMS_ITS | Referral Summary ---
Author Organization [facility] Address [address] [place] [address] Care Team Providers Care Sap Bods Developer Name Role Phone Jovany Zhou MD Primary Care Provider [phone] Allergies No known active allergies Medications albuterol [...] on file Legal Sex Female 12:27 PM ASSISTANT CORPORATE CONTROLLER Gender Identity Not on file Sexual Orientation Not on file Last Filed Vital Signs Vital Sign Reading Time Taken Comments Blood Pressure 136/80 09/28/2017 1:15 PM ASSISTANT CORPORATE CONTROLLER Pulse - - Temperature - - Respiratory Rate - - Oxygen Saturation - - Inhaled Oxygen Concentration - - Weight 68 kg (150 lb) 09/28/2017 1:15 PM ASSISTANT CORPORATE CONTROLLER Height 160 cm (5' 3) 09/28/2017 1:15 PM ASSISTANT CORPORATE CONTROLLER Body Mass Index 26.57 09/28/2017 1:15 PM ASSISTANT CORPORATE CONTROLLER Plan of Treatment Not on file Insurance MEDICARE Care Teams Sap Bods Developer Relationship Specialty Start Date End Date Jovany Zhou MD [address] [place] [phone] PCP - General Family Medicine 06/17/17
--- OUTSIDE RECORDS SUMMARY | 2025-04-18 17:18 | XMS_ITS | Clinical Summary ---
Author Organization [facility] (Formerly [facility]) Eufemia huitron Alyssa Address [address] [place] [address] Care Team Providers Care Demand Manager Name Role Phone Unavailable Primary Care Provider [...] Encounters Date Type Department Care Team Description 04/18/2025 Orders Only [facility] Oncology [facility] [address] [place] [address] Mciky Marie MD 04/11/2025 External Device Data STL ABSTRACTION Provider, Abstract 04/10/2025 External Device Data STL ABSTRACTION Provider, Abstract 03/13/2025 External Device Data STL ABSTRACTION Provider, Abstract 02/15/2025 External Device Data STL ABSTRACTION Provider, Abstract 02/14/2025 External Device Data STL ABSTRACTION Provider, Abstract 02/13/2025 External Device Data STL ABSTRACTION Provider, Abstract 01/30/2025 Telephone [facility] Oncology [facility] [address] [place] [address] Micky Marie MD Lab Results 01/23/2025 External Device Data STL ABSTRACTION Provider, Abstract 01/23/2025 External Device Data STL ABSTRACTION Provider, Abstract 01/23/2025 External Device Data STL ABSTRACTION Provider, Abstract 01/18/2025 Orders Only [facility] ([facility] Oncology and Hematology - [place] [address] [place] [address] Micky Marie MD 01/17/2025 11:30 AM CDT Office Visit [facility] Oncology and Hematology - [place] [address] [place] [id number] Angela Lucia MD Iron deficiency anemia, unspecified iron deficiency anemia type (Primary Dx) 01/17/2025 Orders Only [facility] Oncology and Hematology - [place] [address] [place] [address] Micky Marie MD from Last 3 Months [...] on file Legal Sex Female 3:35 PM UNIFORM ROOM ATTENDANT Gender Identity Not on file Sexual Orientation [...] Description 04/26/2025 11:45 AM CDT Office Visit [facility] Oncology and Hematology [facility] [address] [facility] [address] [place] [address] Micky Marie MD [address] [facility] [address] [place] [address] Health Maintenance Due Date Last Done Comments Pre-Diabetes and Diabetes Screening 1983 HPV VACCINES (1 - 3-dose series) 1998 DTAP/TDAP/TD VACCINES (1 - Tdap) 2002 HEPATITIS B VACCINES (1 of 3 - 19+ 3-dose series) 07/28 HPV/Cotest (21-29) 2004 CERVICAL CANCER SCREENING 2013 HPV/Cotest (30-65) 2013 PAP SMEAR 2013 BREAST CANCER SCREENING 2023 [place] Prev entative Visit/Annual Wellness Visit 09/27/2024 09/28/2017 INFLUENZA VACCINE (#1) 2025 Procedures Procedure Name Priority Date/Time Associated Diagnosis Comments COMPREHENSIVE METABOLIC PANEL Routine 04/17/2025 4:37 PM CDT CBC MIXED CELL DIFFERENTIAL Routine 01/17/2025 3:08 PM CDT COMPREHENSIVE METABOLIC PANEL Routine 01/17/2025 11:51 AM CDT from Last 3 Months Results * COMPREHENSIVE METABOLIC PANEL (04/17/2025 4:37 PM CDT) Only the most recent of2 resultswithin the time period is included. Blood us Micky Marie MD CHEMISTRY ORDERABLES Final Resu lt * CBC MIXED CELL DIFFERENTIAL (01/17/2025 3:08 PM CDT) Blood us Micky Marie MD HEMATOLOGY ORDERABLES Final Res ult from Last 3 Months Insurance [facility] Address: [id number] [place] [id number]
--- NOTE | 2025-04-18 17:25 | ED_ITS ---
HPI - General Adult General Chief complaint: Unspecified Stated complaint: REQUESTING IRON LAB DRAW Source: patient Mode of arrival: ambulatory Limitations: no limitations History of Present Illness HPI narrative: 39-year-old female had an IUD placed earlier this month. Subsequently she has had menorrhagia. Patient presents to the ER to check her serum iron. Patient had iron studies done yesterday which revealed low iron. Patient was noted to have a hemoglobin of 8.9/32. I told the patient that we would not be able to do the iron testing. Patient left AMA. Related Data Home Medications ?Medication ?Instructions ?Recorded ?Confirmed ?Last Taken ?Type naproxen sodium 220 mg capsule 440 mg PO BID PRN pain 03/21/25 03/21/25 Unknown History (Aleve) levonorgestrel (Mirena) 1 device intrauterine ONCE 04/12/25 Unknown History Allergies Allergy/AdvReac Type Severity Reaction Status Date / Time No Known Allergies Allergy Verified 04/12/25 15:26 [facility] Past Medical History Medical History (Updated 04/18/25 @ 17:29 by Dustin Dee MD) Encounter for insertion of mirena IUD Migraine Asthma Anxiety Anemia Iron deficiency anemia Insect bite of foot Cerebral palsy multiple surgeries Surgical History Surgical History (Updated 04/12/25 @ 15:28 by Mary Araya CMA) H/O dilation and curettage H/O tubal ligation History of surgery on lower extremity leg and heel Family History Family History Mother Family history of type 2 diabetes mellitus Other Cerebrovascular accident Hypertension Social History Social History Smoking packs per day: 1 Smoking cigarettes per day: 20.0 Years smoked: 25 Smoking pack-years: 25.00 Smoking status: Current every day smoker Tobacco type: cigarettes Alcohol intake: current Substance use: never Substance use type: does not use Do You Feel Safe in your Home?: Yes Lack of Transportation: YES Lack of Food: Never True Current Housing: I Have Housing Concerned About Future Housing: No Difficulty Paying Gas/Electric Bills: No Difficulty Paying for Meds: No Currently Unemployed: No Education: Associate Degree Difficulty w/ Childcare or Family Care: No Living arrangements: with family Spiritual care concerns: No Course Vital Signs Vital signs: Vital Signs Temperature 36.1 C L 04/18/25 17:10 Pulse Rate 88 04/18/25 17:10 Respiratory Rate 18 04/18/25 17:10 Blood Pressure 134/68 04/18/25 17:10 Pulse Oximetry 100 04/18/25 17:10 Oxygen Delivery Room Air 04/18/25 17:10 Temperature 36.1 C L 04/18/25 17:10 Pulse Rate 88 04/18/25 17:10 Respiratory Rate 18 04/18/25 17:10 Blood Pressure 134/68 04/18/25 17:10 Pulse Oximetry 100 04/18/25 17:10 Oxygen Delivery Room Air 04/18/25 17:10 Medical Decision Making Vital Signs Vital Signs: Vital Signs Temperature 36.1 C L 04/18/25 17:10 Pulse Rate 88 04/18/25 17:10 Respiratory Rate 18 04/18/25 17:10 Blood Pressure 134/68 04/18/25 17:10 Pulse Oximetry 100 04/18/25 17:10 Oxygen Delivery Room Air 04/18/25 17:10 Temperature 36.1 C L 04/18/25 17:10 Pulse Rate 88 04/18/25 17:10 Respiratory Rate 18 04/18/25 17:10 Blood Pressure 134/68 04/18/25 17:10 Pulse Oximetry 100 04/18/25 17:10 Oxygen Delivery Room Air 04/18/25 17:10 Discharge Plan Discharge Clinical Impression: Anemia Qualifiers: Anemia type: other cause Other causes of anemia: other cause, not classified Qualified Code(s): D64.89 - Other specified anemias Patient Disposition: Left Against Medical Advice Condition: Stable Patient Language: Algerian Prescriptions: No Action Mirena 21 mcg/24hr (up to 8 yrs) 52 mg intrauterine device 1 device intrauterine ONCE Rx Instructions: as a single dose naproxen sodium [Aleve] 220 mg capsule 440 mg PO BID PRN (Reason: pain) cholecalciferol (vitamin D3) 50 mcg (2,000 unit) capsule 50 mcg PO DAILY Qty: 30 2RF ferrous sulfate [Iron (ferrous sulfate)] 325 mg (65 mg iron) tablet 325 mg PO BIDWM Qty: 60 0RF pantoprazole 40 mg tablet,delayed release (DR/EC) 40 mg PO PRN Qty: 30 0RF Patient Comments: picked up at pharm sumatriptan succinate 25 mg tablet See Rx Instructions .ROUTE .COMPLEX Qty: 10 0RF Dose Instruction: 1 TAB AT ONSET OF HEADACHE MAY REPEAT ONCE AFTER AT LEAST 2 HOUR IF NO RELIEF-MAX PER 24 HOUR: 4 TAB Rx Instructions: 1 TAB AT ONSET OF HEADACHE MAY REPEAT ONCE AFTER AT LEAST 2 HOUR IF NO RELIEF-MAX PER 24 HOUR: 4 TAB ondansetron 4 mg tablet,disintegrating See Rx Instructions .ROUTE .COMPLEX Qty: 60 0RF Dose Instruction: DISSOLVE 1 TABLET BY MOUTH EVERY 12 HOURS NEEDED FOR NAUSEA AND VOMITING Rx Instructions: DISSOLVE 1 TABLET BY MOUTH EVERY 12 HOURS NEEDED FOR NAUSEA AND VOMITING Follow-up/Referrals: Suzanne Skinner NP [Primary Care Provider] - Time of Disposition: 17:28
== END 2025-04-18 17:15 | disposition left against medical advice (07) ==
PROVIDERS: Emergency Provider Internal Medicine Critical Care Medicine; PCP Nurse Practitioner Family
DX: D64.89 Other specified anemias (principal); F17.210 Nicotine dependence, cigarettes, uncomplicated
CPT/HCPCS: 99281

== ENCOUNTER 2025-04-19 12:11 | Outpatient (CLI) | payer MEDICARE, MEDICAID, SELFPAY ==
--- OUTSIDE RECORDS SUMMARY | 2025-04-19 12:06 | XMS_ITS | Clinical Summary ---
Author Organization [facility] (Former[facility]) Eufemia huitron Alyssa Address [address] [place] [address] Care Team Providers Care Senior Engineering Tech Name Role Phone Unavailable Primary Care Provider [...] Care Team Description 04/18/2025 Orders Only [facility] Oncology [facility] [address] [place] [address] Micky Marie MD 04/11/2025 External Device Data STL ABSTRACTION Provider, Abstract 04/10/2025 External Device Data STL ABSTRACTION Provider, Abstract 03/13/2025 External Device Data STL ABSTRACTION Provider, Abstract 02/15/2025 External Device Data STL ABSTRACTION Provider, Abstract 02/14/2025 External Device Data STL ABSTRACTION Provider, Abstract 02/13/2025 External Device Data STL ABSTRACTION Provider, Abstract 01/30/2025 Telephone [facility] Oncology 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 Gender Identity Not on file [...] 04/26/2025 11:45 AM CDT Office Visit [facility] Oncology and Hematology - [place] [address] [place] [address] Micky Marie MD [address] [facility] [address] [place] [address] Health Maintenance Due Date Last Done Comments Pre-Diabetes and Diabetes Screening 1983 HPV VACCINES (1 - 3-dose series) 1998 DTAP/TDAP/TD VACCINES (1 - Tdap) 2002 HEPATITIS B VACCINES (1 of 3 - 19+ 3-dose series) 07/28 HPV/Cotest (21-29) 2004 CERVICAL CANCER SCREENING 2013 HPV/Cotest (30-65) 2013 PAP SMEAR 2013 BREAST CANCER SCREENING 2023 [place] Prev entative Visit/Annual Wellness Visit 09/27/2024 09/28/2017 INFLUENZA VACCINE (#1) 2025 Procedures Procedure Name Priority Date/Time Associated Diagnosis Comments COMPREHENSIVE METABOLIC PANEL Routine 04/17/2025 4:37 PM CDT from Last 3 Months Results * COMPREHENSIVE METABOLIC PANEL (04/17/2025 4:37 PM CDT) Blood Micky Marie MD CHEMISTRY ORDERABLES Final Resu lt from Last [address] [facility]
--- OUTSIDE RECORDS SUMMARY | 2025-04-19 12:06 | XMS_ITS | Referral Summary ---
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 Gender Identity Not on file Sexual Orientation Not on file Last Filed Vital Signs Vital Sign Reading Time Taken Comments Blood Pressure 136/80 09/28/2017 1:15 PM INVOICE CHECKER Pulse - - Temperature - - Respiratory Rate - - Oxygen Saturation - - Inhaled Oxygen Concentration - - Weight 68 kg (150 lb) 09/28/2017 1:15 PM INVOICE CHECKER Height 160 cm (5' 3) 09/28/2017 1:15 PM INVOICE CHECKER Body Mass Index 26.57 09/28/2017 1:15 PM INVOICE CHECKER Plan of Treatment Not on file Insurance MEDICARE Care Teams Shuttle Filler Relationship Specialty Start Date End Date Jovany Zhou MD [address] [place] [id number] PCP - General Family Medicine 06/17/17
--- OUTSIDE RECORDS SUMMARY | 2025-04-19 12:06 | XMS_ITS | Encounter Summary ---
Author Organization [facility] Address [address] [place] [address] Care Team Providers Care Truckload Owner Operator Name Role Phone Unavailable Primary Care Provider Unavailabl e Encounter Details Date Type Department Care Team ([facility] Contact Info) Description 04/18/[address] [facility] Oncology and Hematology [place] [address] [place] [address] 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 Oncology and Hematology [address] [place] [address] Micky Marie MD [address] [address] [place] [address] documented as of this encounter [...]
--- OUTSIDE RECORDS SUMMARY | 2025-04-19 12:06 | XMS_ITS | Clinical Summary ---
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
[2025-04-19 12:31] LABS: Hematocrit 30.1 % (37.0-47.0); Hemoglobin 8.3 g/dL (12.0-15.0); Immature Granulocyte Percent A 0.4 % (0-0.5); Lymphocytes Absolute Auto 1.34 K/mm3 (0.9-3.2); Mean Corpuscular HGB Conc 27.6 g/dl (32-36); Mean Corpuscular Hemoglobin 19.9 pg (26-34); Mean Corpuscular Volume 72.0 fl (80-100); Nucleated Red Blood Cells Absolute Auto 0.000 K/mm3 (0.0-0.012); Nucleated Red Blood Cells Perc 0.0 % (0.0-0.2); Platelet Count Result 312 k/mm3 (150-375); Red Blood Count 4.18 M/mm3 (4.2-5.4); White Blood Count 7.0 K/mm3 (4.5-10.0)
[2025-04-19 12:53] LABS: Iron 21 ug/dL (37-170)
[2025-04-19 12:56] LABS: Hypochromasia 2+; Microcytosis 1+ (NORMAL); Ovalocytes 1+
[2025-04-19 13:00] LABS: Schistocytes Rare
[2025-04-19 13:01] LABS: Poikilocytosis 1+; Polychromasia 1+
[2025-04-19 13:03] LABS: Percent Iron Saturation 5 % (20-50)
== END 2025-04-19 12:12 | disposition home or self-care (01) ==
LOC: ANHLAB 12:12
PROVIDERS: PCP Nurse Practitioner Family; Visit Provider Obstetrics & Gynecology
DX: D64.89 Other specified anemias (principal)
CPT/HCPCS: 36415; 83540; 83550; 85025

== ENCOUNTER 2025-07-31 15:07 | Outpatient (CLI) | payer MEDICARE, MEDICAID, SELFPAY ==
[2025-07-31 15:30] LABS: Hematocrit 38.8 % (35.0-49.0); Hemoglobin 11.3 g/dL (12.0-15.0); Immature Platelet Fraction Pct 6.1 % (1.0-7.0); Mean Corpuscular HGB Conc 29.1 g/dL (32-36); Mean Corpuscular Hemoglobin 22.4 pg (27.0-31.0); Mean Corpuscular Volume 77.0 fL (78.0-102.0); Platelet Count Result 238 K/mm3 (150-420); Red Blood Count 5.04 M/mm3 (4.20-5.40); White Blood Count 6.6 K/mm3 (4.8-10.8)
[2025-07-31 15:47] LABS: Iron 103 ug/dL (37-170)
[2025-07-31 15:57] LABS: Percent Iron Saturation 26 % (20-50)
[2025-07-31 16:22] LABS: Ferritin 4.94 ng/mL (6.24-137)
--- OUTSIDE RECORDS SUMMARY | 2025-07-31 16:29 | XMS_ITS | Clinical Summary ---
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 Gender Identity Not on file Sexual Orientation [...] Comments Blood Pressure 136/80 09/28/2017 1:15 PM EXECUTIVE SEARCH CONSULTANT Pulse - - Temperature - - Respiratory Rate - - Oxygen Saturation - - Inhaled Oxygen Concentration - - Weight 68 kg (150 lb) 09/28/2017 1:15 PM EXECUTIVE SEARCH CONSULTANT Height 160 cm (5' 3) 09/28/2017 1:15 PM EXECUTIVE SEARCH CONSULTANT Body Mass Index 26.57 09/28/2017 1:15 PM EXECUTIVE SEARCH CONSULTANT Plan of Treatment Not on file Insurance MEDICARE Care Teams Devulcanizer Charger Relationship Specialty Start Date End Date Jovany Zhou MD PCP - General Family Medicine 06/17/17
--- OUTSIDE RECORDS SUMMARY | 2025-07-31 16:29 | XMS_ITS | Clinical Summary ---
Author Organization [facility] Eufemia Cartagenacarla Address [address] [facility] [place] [address] Care Team Providers Care Teacher Public Health Name Role Phone Unavailable Primary Care Provider [...] Encounters Date Type Department Care Team Description 07/17/2025 External Device Data STL ABSTRACTION Provider, Abstract 05/01/2025 External Device Data STL ABSTRACTION Provider, Abstract from Last 3 Months Family History * [...] Date Smoking Tobacco: Every Day Cigarettes 1 27.8 Started: 1997 Cigars Tobacco Cessation:Ready to Q uit: Not Asked; Counseling Given: Not Answered Alcohol Use Standard Drinks/Week Comments Yes 0 (1 standard drink = 0.6 oz pur e alcohol) Occasionally Comments Unknown Sex and Gender Information Value Date Recorded Sex Assigned at Not on file 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 Gender Identity Not on file Sexual Orientation Not on file Last Filed Vital Signs Vital Sign Reading Time Taken Comments Blood Pressure 139/85 04/26/2025 11:37 AM CDT Pulse 88 04/26/2025 11:37 AM CDT Temperature 36.4 C (97.6 F) 04/26/2025 11:37 AM CDT Respiratory Rate 15 04/26/2025 11:37 AM CDT Oxygen Saturation 98% 04/26/2025 11:37 AM CDT Inhaled Oxygen Concentration - - Weight 77.2 kg (170 lb 3.2 oz) 04/26/2025 11:37 AM CDT Height 160 cm (5' 3) 01/17/2025 11:08 AM CDT Body Mass Index 30.15 01/17/2025 11:08 AM CDT Plan of Treatment Upcoming Encounters Date Type Department Care Team (Late st Contact Info) Description 08/01/2025 11:30 AM CHIEF METER READER Office Visit [facility] Oncology and Hematology [facility] [address] [place] [address] [facility] [address] [place] [address] Micky Marie MD [address] [facility] [address] [place] [address] Health Maintenance Due Date Last Done Comments Pre-Diabetes and Diabetes Screening 1983 DTAP/TDAP/TD VACCINES (1 - Tdap) 2002 HEPATITIS B VACCINES (1 of 3 - 19+ 3-dose series) 07/28 HPV/Cotest (21-29) 2004 HPV VACCINES (1 - 3-dose SCDM series) 2010 CERVICAL CANCER SCREENING 2013 HPV/Cotest (30-65) 2013 PAP SMEAR 2013 BREAST CANCER SCREENING 2023 Medicare [place] ([place]) Prev entative Visit/Annual Wellness Visit 09/27/2024 09/28/2017 INFLUENZA VACCINE (#1) 2025 Insurance [facility]
[2025-07-31 16:54] LABS: Vitamin B12 377.0 pg/mL (239-931)
== END 2025-07-31 15:08 | disposition home or self-care (01) ==
LOC: CHSLAB 15:09
PROVIDERS: PCP Nurse Practitioner Family; Visit Provider Internal Medicine Hematology & Oncology
DX: D50.9 Iron deficiency anemia, unspecified (principal)
CPT/HCPCS: 36415; 82607; 82728; 82746; 83540; 83550; 85027; 85055